=== PATIENT | female | born 1980 | race Hispanic/Latino ===

== ENCOUNTER 2019-05-29 16:03 | Inpatient (IN) | payer OTHER ==
[~2019-05-29] VITALS: Ht 160 cm; Wt 59.8 kg
[~2019-05-29 16:03] MED LIST: LEVO500T89 PO; OSEL75 PO; VERA120T13 PO
[2019-05-29] MEDS ORDERED: SODIUM CHLORIDE 0.9% 1000ML 1,000 ML IV ONE ×2 (16:25→20:01)
[2019-05-29 16:32] LABS: APPEARANCE,URINE Cloudy (CLEAR); BILIRUBIN,URINE Large (NEGATIVE); COLOR,URINE Dark Yellow (YELLOW); GLUCOSE, URINE (UA) Negative (NEGATIVE); KETONES,URINE 40 mg/dL (NEGATIVE); LEUKOCYTE ESTERASE ,URINE Moderate (NEGATIVE); NITRATE,URINE Negative (NEGATIVE); OCCULT BLOOD,URINE Trace (NEGATIVE); PROTEIN,URINE POS 1+ mg/dL (NEGATIVE)
[2019-05-29 16:35] LABS: BASOPHILS % (AUTO) 0.7 % (0.0-5.0); EOSINOPHILS % (AUTO) 1.8 % (0.0-8.0); HEMATOCRIT 41.6 % (36-48); LYMPHOCYTES % (AUTO) 34.1 % (21.0-51.0); MEAN CORPUSCULAR HEMOGLOBIN 30.5 pg (27.0-33.0); MEAN CORPUSCULAR HGB CONC 34.8 g/dL (32.0-36.0); MEAN CORPUSCULAR VOLUME 87.4 fL (79-99); MONOCYTES % (AUTO) 23.6 % (3.0-13.0); NEUTROPHILS % (AUTO) 39.8 % (40.0-77.0); NUCLEATED RED BLOOD CELLS 0.1 % (0.0-0.19); PLATELET COUNT (AUTO) 256 K/uL (130-400); RED BLOOD CELL COUNT(AUTO) 4.76 MIL/uL (4.00-5.50); RED CELL DISTRIBUTION WIDTH 13.2 % (11.0-15.5); WHITE BLOOD COUNT (AUTO) 14.9 K/uL (4.8-10.8)
[2019-05-29 16:46] LABS: AMORPHOUS SEDIMENT,UR Few /LPF (None Seen); BACTERIA,URINE Moderate /HPF (None Seen); MUCUS,URINE Moderate LPF (None Seen)
[2019-05-29 16:47] LABS: INR 1.14 (0.85-1.15); PARTIAL THROMBOPLASTIN TIME 34.9 SEC (26.3-35.5); PROTHROMBIN TIME 11.9 SEC (9.6-11.6)
[2019-05-29 16:59] LABS: ALBUMIN 3.1 g/dL (3.5-5.0); CREATININE 3.9 mg/dL (0.5-1.5); POTASSIUM 3.3 mmol/L (3.5-5.1); TOTAL PROTEIN, SERUM 7.3 g/dL (6.0-8.3)
[2019-05-29] MEDS ORDERED: CEFTRIAXONE SODIUM 1 GM ONE (17:08)
[2019-05-29] MEDS ORDERED: SODIUM CHLORIDE 0.9% 1000ML 2,000 ML IV ONE (17:11)
[2019-05-29 17:15] LABS: ACETAMINOPHEN < 1 mcg/mL (10-30); SALICYLATE < 2.8 mg/dL (2.8-20.0)
[2019-05-29 17:16] LABS: AMPHET/METH SCREEN,URINE NEGATIVE (NEGATIVE); BARBITURATE SCREEN, URINE NEGATIVE (NEGATIVE); BENZODIAZEPINES SCREEN,URINE NEGATIVE (NEGATIVE); CANNABINOID SCREEN,URINE NEGATIVE (NEGATIVE); COCAINE SCREEN,URINE NEGATIVE (NEGATIVE); OPIATE SCREEN,URINE NEGATIVE (NEGATIVE); PHENCYCLIDINE SCREEN,URINE NEGATIVE (NEGATIVE)
[2019-05-29 17:24] LABS: ALCOHOL, BLOOD < 3 mg/dL (0-10)
[2019-05-29 18:25] LABS: ABG BASE EXCESS -9.2 mmol/L (-2.0-3.0); ABG HCO3 12.1 mmol/L (21.0-28.0); ABG OXYGEN SATURATION 98.3 % (95.0-99.0); ABG PCO2 18 mmHg (32-45)
[2019-05-29] MEDS ORDERED: NS-20 MEQ KCL 1000ML 1,000 ML IV ONE (19:45)
[2019-05-29] MEDS ORDERED: MAGNESIUM 2GM PREMIX 50ML 50 ML IV ONE (19:46)
[2019-05-29] MEDS ORDERED: PHARMACY COMMUNICATION MISC SCH (20:45)
[2019-05-29 22:01] LABS: BASOPHILS % (AUTO) 0.2 % (0.0-5.0); EOSINOPHILS % (AUTO) 2.2 % (0.0-8.0); HEMATOCRIT 35.7 % (36-48); LYMPHOCYTES % (AUTO) 31.1 % (21.0-51.0); MEAN CORPUSCULAR HEMOGLOBIN 30.3 pg (27.0-33.0); MEAN CORPUSCULAR HGB CONC 34.2 g/dL (32.0-36.0); MEAN CORPUSCULAR VOLUME 88.4 fL (79-99); MONOCYTES % (AUTO) 21.1 % (3.0-13.0); NEUTROPHILS % (AUTO) 45.4 % (40.0-77.0); NUCLEATED RED BLOOD CELLS 0.1 % (0.0-0.19); PLATELET COUNT (AUTO) 231 K/uL (130-400); RED BLOOD CELL COUNT(AUTO) 4.04 MIL/uL (4.00-5.50); RED CELL DISTRIBUTION WIDTH 13.3 % (11.0-15.5); WHITE BLOOD COUNT (AUTO) 11.6 K/uL (4.8-10.8)
[2019-05-29 22:10] LABS: CREATININE 2.4 mg/dL (0.5-1.5); POTASSIUM 3.3 mmol/L (3.5-5.1)
[2019-05-29 22:16] LABS: ALBUMIN 2.6 g/dL (3.5-5.0); BILIRUBIN,TOTAL 2.6 mg/dL (0.2-1.0); TOTAL PROTEIN, SERUM 6.2 g/dL (6.0-8.3)
[2019-05-29 22:30] LABS: MAGNESIUM 2.5 mg/dL (1.80-2.40)
[2019-05-29 22:31] LABS: TROPONIN I 1.15 ng/mL (0.00-0.06)
[2019-05-30] MEDS ORDERED: ACETAMINOPHEN EXTRA STRENGTH 500 MG TABLET ONE (04:31)
[2019-05-30 05:18] LABS: BASOPHILS % (AUTO) 0.2 % (0.0-5.0); EOSINOPHILS % (AUTO) 1.5 % (0.0-8.0); HEMATOCRIT 33.9 % (36-48); LYMPHOCYTES % (AUTO) 24.8 % (21.0-51.0); MEAN CORPUSCULAR HEMOGLOBIN 30.8 pg (27.0-33.0); MEAN CORPUSCULAR HGB CONC 34.5 g/dL (32.0-36.0); MEAN CORPUSCULAR VOLUME 89.1 fL (79-99); MONOCYTES % (AUTO) 20.6 % (3.0-13.0); NEUTROPHILS % (AUTO) 52.9 % (40.0-77.0); PLATELET COUNT (AUTO) 219 K/uL (130-400); RED BLOOD CELL COUNT(AUTO) 3.81 MIL/uL (4.00-5.50); RED CELL DISTRIBUTION WIDTH 13.4 % (11.0-15.5); WHITE BLOOD COUNT (AUTO) 13.5 K/uL (4.8-10.8)
[2019-05-30 05:23] LABS: CREATININE 1.5 mg/dL (0.5-1.5); POTASSIUM 3.6 mmol/L (3.5-5.1)
[2019-05-30 05:26] LABS: ALBUMIN 2.3 g/dL (3.5-5.0); BILIRUBIN,TOTAL 2.2 mg/dL (0.2-1.0); MAGNESIUM 2.6 mg/dL (1.80-2.40); TOTAL PROTEIN, SERUM 5.7 g/dL (6.0-8.3)
[2019-05-30 05:51] LABS: TROPONIN I 0.91 ng/mL (0.00-0.06)
[2019-05-30 12:26] LABS: TROPONIN I 0.73 ng/mL (0.00-0.06)
[2019-05-30] MEDS ORDERED: ZOSYN 3.375GM+NS 50ML 50 ML IV ONE (14:52)
[2019-05-30] MEDS ORDERED: SODIUM CHLORIDE 0.9% 1000ML 1,000 ML IV ONE (15:06)
[2019-05-30] MEDS ORDERED: CEFTRIAXONE SODIUM 1 GM IVP SCH (17:00)
[2019-05-30 18:38] LABS: TROPONIN I 0.62 ng/mL (0.00-0.06)
[2019-05-31] MEDS ORDERED: ZOSYN 3.375GM+NS 50ML 50 ML IV ONE ×2 (00:39→07:23)
[2019-05-31] MEDS ORDERED: ACETAMINOPHEN 325 MG TAB ONE (04:21)
[2019-05-31 04:57] LABS: BASOPHILS % (AUTO) 0.3 % (0.0-5.0); HEMATOCRIT 36.7 % (36-48); LYMPHOCYTES % (AUTO) 28.2 % (21.0-51.0); MEAN CORPUSCULAR HEMOGLOBIN 30.7 pg (27.0-33.0); MEAN CORPUSCULAR HGB CONC 34.1 g/dL (32.0-36.0); MONOCYTES % (AUTO) 17.9 % (3.0-13.0); NEUTROPHILS % (AUTO) 49.6 % (40.0-77.0); PLATELET COUNT (AUTO) 232 K/uL (130-400); RED BLOOD CELL COUNT(AUTO) 4.08 MIL/uL (4.00-5.50); WHITE BLOOD COUNT (AUTO) 11.8 K/uL (4.8-10.8)
[2019-05-31 05:16] LABS: MAGNESIUM 1.2 mg/dL (1.80-2.40); PHOSPHORUS 3.3 mg/dL (2.5-4.9); TROPONIN I 0.35 ng/mL (0.00-0.06)
[2019-05-31 05:19] LABS: ALBUMIN 2.6 g/dL (3.5-5.0); BILIRUBIN,TOTAL 2.3 mg/dL (0.2-1.0); CREATININE 1.2 mg/dL (0.5-1.5); POTASSIUM 3.2 mmol/L (3.5-5.1); THYROID STIMULATING HORMONE 11.56 uIU/mL (0.36-3.74); TOTAL PROTEIN, SERUM 6.9 g/dL (6.0-8.3)
[2019-05-31] MEDS ORDERED: DEXTROSE 50%-WATER 50 ML DISP.SYRIN IV ONE (05:24)
[2019-05-31] MEDS ORDERED: MAGNESIUM 2GM PREMIX 50ML 50 ML IV ONE (05:45)
[2019-05-31] MEDS ORDERED: POTASSIUM CHLORIDE 20 MEQ ERTAB PO ONE (05:47)
[2019-05-31] MEDS: ZOSYN 3.375GM+NS 50ML 50 ML IV SCH ×3 (06:15→22:31)
[2019-05-31] MEDS ORDERED: DEXTROSE 50%-WATER 25 GM/50 ML VIAL IV SCH (07:15)
[2019-05-31 10:30] VITALS: BP 93/60
[2019-05-31] MEDS: SODIUM CHLORIDE 0.9% 1000ML 1,000 ML IV SCH (11:24)
[2019-05-31 16:00] VITALS: BP 95/61
[2019-05-31] MEDS ORDERED: LEVO75TA10 PO (16:24)
[2019-05-31] MEDS ORDERED: HYDR-3894 PO (16:24)
[2019-05-31] MEDS: ASPIRIN 325MG EC TAB 325 MG TABLET.DR PO SCH (16:31)
--- NOTE | 2019-05-31 19:07 | NUR ---
cm note met with patient and states resides athome with adult children, independent with ambulation and adls, no dme. provided with list of low income clinics in the area. and rx paula, pt states will follow up. dc plan is home at pa. Addendum: 05/31/19 at 1909 by ANDREWS ALTMAN CM Amended: Links added.
[2019-05-31 19:20] VITALS: BP 91/54
[2019-05-31] MEDS: HYDROCORTISONE 20 MG TABLET PO SCH (22:30)
[2019-05-31 23:26] VITALS: BP 94/42
[2019-06-01] VITALS (8 sets, daily range): BP systolic 83–103; BP diastolic 47–68
[2019-06-01] MEDS: SODIUM CHLORIDE 0.9% 1000ML 1,000 ML IV SCH ×2 (03:47→08:45)
[2019-06-01] MEDS: ZOSYN 3.375GM+NS 50ML 50 ML IV SCH ×3 (03:47→21:11)
[2019-06-01 05:31] LABS: ALBUMIN 2.5 g/dL (3.5-5.0); PHOSPHORUS 3.2 mg/dL (2.5-4.9); POTASSIUM 3.5 mmol/L (3.5-5.1)
[2019-06-01] MEDS: LEVOTHYROXINE 75 MCG TABLET PO SCH (07:30)
[2019-06-01] MEDS ORDERED: REGADENOSON 0.4 MG/5 ML PF SYG IVP SCH (08:00)
[2019-06-01] MEDS: HYDROCORTISONE 20 MG TABLET PO SCH ×3 (09:00→21:11)
--- NOTE | 2019-06-01 11:50 | NUR ---
ANTON FROM RADIOLOGY CALLED AND REPORTED PATIENT HR AT 170S. PATIENT ARRIVED TO THE ROOM RELAXED AND NO DISTRESS NOTED. TELE MONITOR REPORTED A-FIB IN THE 130'S AND SHORTLY AFTERWARDS CONVERTED ON SVT 175. [facility] PAGED, DR CHACON ENTERTAINMENT & MEDIA CORRESPONDENT. AREN FROM [facility] STATED I SHOULD PAGED JULIA CHURCHILL SINCE HE WAS THE ONE WHO SAW THE PATIENT DURING THE WEEKEND.
--- NOTE | 2019-06-01 12:17 | NUR ---
PAGED JULIA HALEY. WAITING FOR CALL BACK.
--- NOTE | 2019-06-01 12:20 | NUR ---
JULIA CHURCHILL CALLED BACK. STATED HE CANNOT GIVEN ANY ORDERS OVER THE PHONE BECAUSE AN MD NEEDS TO ASSESS THE PATIENT IN PERSON AND MAKE SOME DECISIONS. RAPID RESPONSE CALLED. PATIENT STILL APPEARS ASYMPTOMATIC. NO SOB, CHEST PAIN OR DISCOMFORT NOTED.
--- NOTE | 2019-06-01 12:22 | NUR ---
DR STARK AWARE OF PATIENT STATUS. ORDERS TO TRANSFER PATIENT TO PCCU. 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 REPORT CALLED TO JESSY ELY. ALL QUESTIONS ANSWERED ACCORDINGLY.
--- NOTE | 2019-06-01 12:25 | NUR ---
NURSING OBSERVATION B/P 86/68, P=171, BRENDA B/P 84/50, P=170, DENIES C.P. OR DIZZINESS, PLACED ON 02,NO NO DISTRESS NOTED, CONTINUE TO MONITOR.
[2019-06-01] MEDS ORDERED: ADENOSINE 3 MG/ML 2ML VIAL IV SCH (12:47)
--- NOTE | 2019-06-01 13:00 | NUR ---
RECEIVED PATIENT VIA BED FRO ROOM 412, ACCOMPANIED BY PRIMARY NURSE, KENDAL RN AND BILL RN 3RD FRUIT HARVESTER. PATIENT APPEARS COMFORTABLE. APPLIED EAR SPECIALIST AND BP CUFF. SVT HR 171-190. BP 96/60. ASYMPTOMATIC. DENIES CHEST PAIN OR SHORTNESS OF BREATH. ALYSE SALOMON PA-C ARRIVED , STATES WILL ASSESS PATIENT PRIOR TO ANY TREATMENT/MEDICATION.
[2019-06-01 13:14] LABS: CREATININE 0.9 mg/dL (0.5-1.5); MAGNESIUM 0.9 mg/dL (1.80-2.40); POTASSIUM 3.3 mmol/L (3.5-5.1)
--- NOTE | 2019-06-01 13:25 | NUR ---
GIVEN NORMAL SALINE 500 CC IV BOLUS.
[2019-06-01] MEDS ORDERED: DILTIAZEM HCL 5 MG/ML 10 ML VIAL IV SCH (13:42)
[2019-06-01] MEDS ORDERED: DILTIAZEM 125MG+100 ML NS 125 ML IV SCH (13:42)
[2019-06-01] MEDS ORDERED: DILTIAZEM HCL 5 MG/ML 5 ML VIAL IVP SCH (13:44)
[2019-06-01] MEDS ORDERED: DILTIAZEM 125MG+100 ML NS 125 ML IV PRN (13:45)
[2019-06-01] MEDS ORDERED: MAGNESIUM 4GM PREMIX 100ML 100 ML IV STA (13:48)
[2019-06-01] MEDS ORDERED: POTASSIUM CHLORIDE 20 MEQ ERTAB PO PRN (14:00)
[2019-06-01] MEDS ORDERED: POTASSIUM CHLORIDE 20MEQ/100ML 100 ML IV PRN (14:00)
[2019-06-01] MEDS ORDERED: LIDOCAINE HCL-MPF 1% 2ML VIAL IV PRN (14:00)
--- NOTE | 2019-06-01 14:00 | NUR ---
NOTED AT INTERVALS HEART RATE SVT 170-180'S AND WITHIN SECONDS WILL CONVERT TO SR- ST 90-105. ASYMPTOMATIC. ALYSE SALOMON PA-C AT BEDSIDE. BP 117/70.
--- NOTE | 2019-06-01 14:02 | NUR ---
ADENOSINE 12 MG IV PUSH GIVEN BY Delfina SALOMON PA-C, FOLLOWED BY CARDIZEM 10 MG IV AND INITIATED IV CARDIZEM DRIP AT 10MG/HR. PATIENT STATES SHE FEELS "WEIRD", BP 96/60, HR 94 SR, O2 SAT 97% ON ROOM AIR. WILL CONTINUE TO MONITOR.
--- NOTE | 2019-06-01 14:05 | NUR ---
PATIENT STATES SHE FEELS FINE. ASYMPTOMATIC. BP 90/66, P 90. WILL CONTINUE TO MONITOR. FAMILY MEMBERS AT BEDSIDE.
[2019-06-01] MEDS: ASPIRIN 325MG EC TAB 325 MG TABLET.DR PO SCH (15:24)
[2019-06-01] MEDS: POTASSIUM CHLORIDE 10% ELIXIR 20 MEQ/15 ML UDCUP PO PRN ×2 (15:25→17:51)
--- NOTE | 2019-06-01 15:30 | NUR ---
AFTER HAVING LUNCH MEAL, INITIATED ORAL HYPOKALEMIA PROTOCOL (K+ 3.3) AND INITIATED 4GMS IV MAGNESIUM (MG 0.9).
[2019-06-01] MEDS ORDERED: LACTATED RINGERS 1000ML IV SCH (16:00)
--- NOTE | 2019-06-01 16:00 | NUR ---
WOOL SPOTTER SR HR 87-80. DECREASED IV CARDIZEM DRIP TO 5MG/HR. BP 90/60.
[2019-06-01] MEDS: DILTIAZEM HCL 60 MG TABLET PO SCH ×2 (17:50→23:36)
--- NOTE | 2019-06-01 18:00 | NUR ---
WEANED OFF IV CARDIZEM DRIP. SR HR 80'S. BP 90/56.
--- NOTE | 2019-06-01 18:30 | NUR ---
INITIATED PO CARDIZEM 30 MG PO. HR 87 SR.
--- NOTE | 2019-06-01 19:00 | NUR ---
Assumed care at 1900. Patient in bed with family at bedside. Patient in no apparent distress. No pain reported. Please review assessment for further detail. Will continue to monitor.
[2019-06-02] VITALS (8 sets, daily range): BP systolic 80–99; BP diastolic 37–58
[2019-06-02 03:45] LABS: BASOPHILS % (AUTO) 0.5 % (0.0-5.0); EOSINOPHILS % (AUTO) 0.1 % (0.0-8.0); HEMATOCRIT 31.5 % (36-48); LYMPHOCYTES % (AUTO) 21.2 % (21.0-51.0); MEAN CORPUSCULAR HEMOGLOBIN 30.9 pg (27.0-33.0); MEAN CORPUSCULAR HGB CONC 34.9 g/dL (32.0-36.0); MEAN CORPUSCULAR VOLUME 88.5 fL (79-99); MONOCYTES % (AUTO) 10.1 % (3.0-13.0); NEUTROPHILS % (AUTO) 68.1 % (40.0-77.0); PLATELET COUNT (AUTO) 305 K/uL (130-400); RED BLOOD CELL COUNT(AUTO) 3.57 MIL/uL (4.00-5.50); RED CELL DISTRIBUTION WIDTH 13.6 % (11.0-15.5); WHITE BLOOD COUNT (AUTO) 6.8 K/uL (4.8-10.8)
[2019-06-02 04:02] LABS: ALBUMIN 2.6 g/dL (3.5-5.0); BILIRUBIN,TOTAL 0.8 mg/dL (0.2-1.0); CREATININE 0.7 mg/dL (0.5-1.5); MAGNESIUM 1.6 mg/dL (1.80-2.40); PHOSPHORUS 1.7 mg/dL (2.5-4.9); TOTAL PROTEIN, SERUM 6.7 g/dL (6.0-8.3)
[2019-06-02] MEDS: DILTIAZEM HCL 60 MG TABLET PO SCH (06:00)
[2019-06-02] MEDS: LEVOTHYROXINE 75 MCG TABLET PO SCH (06:11)
[2019-06-02] MEDS: ZOSYN 3.375GM+NS 50ML 50 ML IV SCH ×3 (06:11→22:01)
[2019-06-02] MEDS: HYDROCORTISONE 20 MG TABLET PO SCH ×3 (08:42→22:00)
[2019-06-02] MEDS: ASPIRIN 325MG EC TAB 325 MG TABLET.DR PO SCH (08:42)
[2019-06-02] MEDS: MAGNESIUM 2GM PREMIX 50ML 50 ML IV PRN (08:46)
[2019-06-02] MEDS ORDERED: SODIUM CHLORIDE 0.9% 1000ML 1,000 ML IV ONE (15:57)
[2019-06-03 03:22] VITALS: BP 96/44
[2019-06-03] MEDS: ZOSYN 3.375GM+NS 50ML 50 ML IV SCH ×2 (05:58→14:58)
[2019-06-03] MEDS: LEVOTHYROXINE 75 MCG TABLET PO SCH (06:36)
[2019-06-03 07:22] VITALS: BP 81/51
[2019-06-03] MEDS: HYDROCORTISONE 20 MG TABLET PO SCH ×2 (08:59→14:58)
[2019-06-03] MEDS: ASPIRIN 325MG EC TAB 325 MG TABLET.DR PO SCH (09:00)
[2019-06-03] MEDS: MAGNESIUM 2GM PREMIX 50ML 50 ML IV PRN (09:09)
[2019-06-03 11:41] VITALS: BP 114/50
[2019-06-03 15:10] VITALS: BP 110/61
[2019-06-03 15:33] LABS: CREATININE 0.7 mg/dL (0.5-1.5); MAGNESIUM 2.2 mg/dL (1.80-2.40)
[2019-06-03] MEDS ORDERED: POTASSIUM CHLORIDE 20 MEQ ERTAB PO SCH (16:00)
== END 2019-06-03 18:25 | disposition home or self-care (01) | DRG 871 ==
LOC: EDH 16:03 → EDHIP 16:04 → 3CH 19:52 → EDHIP 20:18 → 4BH 05-31 10:12 → 2BH 06-01 13:00 → 2AH 06-02 18:11
PROVIDERS: ADMIT Internal Medicine Infectious Disease; ATTEND Internal Medicine Infectious Disease
DX: A41.9 Sepsis, unspecified organism (principal); R65.21 Severe sepsis with septic shock; I21.4 Non-ST elevation (NSTEMI) myocardial infarction; G93.41 Metabolic encephalopathy; N39.0 Urinary tract infection, site not specified; E87.1 Hypo-osmolality and hyponatremia; I47.1 Supraventricular tachycardia; N17.9 Acute kidney failure, unspecified; E16.2 Hypoglycemia, unspecified; E83.42 Hypomagnesemia; L80 Vitiligo; E87.5 Hyperkalemia; I48.91 Unspecified atrial fibrillation; E87.6 Hypokalemia; E03.9 Hypothyroidism, unspecified; Z87.01 Personal history of pneumonia (recurrent); Z90.49 Acquired absence of other specified parts of digestive tract; Z82.3 Family history of stroke; Z82.49 Family history of ischemic heart disease and other diseases of the circulatory system; Z91.19 Patient's noncompliance with other medical treatment and regimen
CPT/HCPCS: 36415; 36600; 70450; 71045; 78452; 80048; 80053; 80061; 80069; 80305; 81001; 82140; 82550; 82803; 82948; 83605; 83735; 83874; 84100; 84443; 84484; 84702; 85025; 85610; 85730; 87040; 87088; 93005; 93017; 93306; 96374; A9500; G0378; G0480; G0481; J0153; J0696; J2543; J2785; J3475; J3480; J3490; J7030; J7070; J7120

== ENCOUNTER 2019-08-09 14:51 | Inpatient (IN) | payer SELFPAY ==
[~2019-08-09] VITALS: Ht 160 cm; Wt 61.1 kg
[~2019-08-09 14:51] MED LIST changes: +HYDR-3894 PO; -LEVO500T89 PO; +LEVO75TA10 PO; -OSEL75 PO; -VERA120T13 PO
[2019-08-09] MEDS ORDERED: ONDANSETRON HCL 4 MG/2 ML VIAL ONE (15:05)
[2019-08-09] MEDS ORDERED: SODIUM CHLORIDE 0.9% 1000ML 1,000 ML IV ONE ×2 (15:06→16:09)
[2019-08-09 15:48] LABS: BASOPHILS % (AUTO) 0.7 % (0.0-5.0); EOSINOPHILS % (AUTO) 3.4 % (0.0-8.0); HEMATOCRIT 45.8 % (36-48); MEAN CORPUSCULAR HEMOGLOBIN 29.7 pg (27.0-33.0); MEAN CORPUSCULAR VOLUME 82.4 fL (79-99); MONOCYTES % (AUTO) 16.6 % (3.0-13.0); NEUTROPHILS % (AUTO) 46.9 % (40.0-77.0); PLATELET COUNT (AUTO) 447 K/uL (130-400); RED BLOOD CELL COUNT(AUTO) 5.56 MIL/uL (4.00-5.50); RED CELL DISTRIBUTION WIDTH 12.5 % (11.0-15.5); WHITE BLOOD COUNT (AUTO) 16.5 K/uL (4.8-10.8)
[2019-08-09 16:09] LABS: INR 1.09 (0.85-1.15); PARTIAL THROMBOPLASTIN TIME 30.6 SEC (26.3-35.5); PROTHROMBIN TIME 11.4 SEC (9.6-11.6)
[2019-08-09 16:17] LABS: APPEARANCE,URINE Cloudy (CLEAR); BILIRUBIN,URINE Negative (NEGATIVE); COLOR,URINE Yellow (YELLOW); GLUCOSE, URINE (UA) Negative (NEGATIVE); KETONES,URINE >=160 mg/dL (NEGATIVE); LEUKOCYTE ESTERASE ,URINE Moderate (NEGATIVE); NITRATE,URINE Negative (NEGATIVE); OCCULT BLOOD,URINE Small (NEGATIVE); PROTEIN,URINE POS 1+ mg/dL (NEGATIVE)
[2019-08-09 16:26] LABS: AMPHET/METH SCREEN,URINE NEGATIVE (NEGATIVE); BARBITURATE SCREEN, URINE NEGATIVE (NEGATIVE); BENZODIAZEPINES SCREEN,URINE NEGATIVE (NEGATIVE); CANNABINOID SCREEN,URINE NEGATIVE (NEGATIVE); COCAINE SCREEN,URINE NEGATIVE (NEGATIVE); OPIATE SCREEN,URINE NEGATIVE (NEGATIVE); PHENCYCLIDINE SCREEN,URINE NEGATIVE (NEGATIVE)
[2019-08-09 16:40] LABS: BACTERIA,URINE Few /HPF (None Seen); RBC,URINE None Seen /HPF (0-1)
[2019-08-09 16:59] LABS: CREATININE 1.3 mg/dL (0.5-1.5); POTASSIUM 3.9 mmol/L (3.5-5.1)
[2019-08-09] MEDS ORDERED: CEFTRIAXONE SODIUM 1 GM ONE (17:01)
[2019-08-09] MEDS ORDERED: SODIUM CHLORIDE 0.9% 50 ML IV ONE (17:01)
[2019-08-09 17:05] LABS: ALBUMIN 3.5 g/dL (3.5-5.0); BILIRUBIN,TOTAL 1.1 mg/dL (0.2-1.0); TOTAL PROTEIN, SERUM 7.7 g/dL (6.0-8.3)
[2019-08-09] MEDS ORDERED: ACETAMINOPHEN EXTRA STRENGTH 500 MG TABLET ONE (17:08)
[2019-08-09] MEDS ORDERED: ZOSYN 3.375GM+NS 50ML 50 ML IV ONE (17:44)
[2019-08-09] MEDS ORDERED: ACETAMINOPHEN 325 MG TAB PO PRN (17:45)
[2019-08-09] MEDS ORDERED: ONDANSETRON HCL 4 MG/2 ML VIAL IVP PRN (17:45)
[2019-08-09] MEDS ORDERED: MORPHINE SULFATE 2 MG/ML 1ML SYG IVP PRN (17:45)
[2019-08-09 19:00] VITALS: BP_SYST 88; BP_DIAS 50; BP_DIAS 56
[2019-08-09] MEDS: ZOSYN 3.375GM+NS 50ML 50 ML IV SCH (20:34)
[2019-08-09 20:35] VITALS: BP 101/59
--- NOTE | 2019-08-09 20:35 | NUR ---
MD Dr STARK notified via phone re low bp readings,started pt on IVF.
[2019-08-09] MEDS: SODIUM CHLORIDE 0.9% 1000ML 1,000 ML IV SCH (21:37)
[2019-08-09] MEDS: HYDROCORTISONE 20 MG TABLET PO SCH (21:37)
[2019-08-10] VITALS (7 sets, daily range): BP systolic 85–105; BP diastolic 53–64
--- NOTE | 2019-08-10 03:19 | NUR ---
ASLEEP Pt slept well.No distress noted.
[2019-08-10] MEDS: ZOSYN 3.375GM+NS 50ML 50 ML IV SCH ×3 (04:03→20:34)
[2019-08-10] MEDS ORDERED: LEVOTHYROXINE 75 MCG TABLET ONE (05:57)
[2019-08-10] MEDS: LEVOTHYROXINE 75 MCG TABLET PO SCH (05:58)
[2019-08-10 06:11] LABS: HEMATOCRIT 39.8 % (36-48); MEAN CORPUSCULAR HEMOGLOBIN 29.3 pg (27.0-33.0); MEAN CORPUSCULAR HGB CONC 34.2 g/dL (32.0-36.0); MEAN CORPUSCULAR VOLUME 85.8 fL (79-99); PLATELET COUNT (AUTO) 422 K/uL (130-400); RED BLOOD CELL COUNT(AUTO) 4.64 MIL/uL (4.00-5.50); RED CELL DISTRIBUTION WIDTH 13.1 % (11.0-15.5); WHITE BLOOD COUNT (AUTO) 12.8 K/uL (4.8-10.8)
[2019-08-10 06:29] LABS: ALBUMIN 3.1 g/dL (3.5-5.0); BILIRUBIN,TOTAL 0.8 mg/dL (0.2-1.0); CREATININE 0.9 mg/dL (0.5-1.5); MAGNESIUM 2.6 mg/dL (1.80-2.40); POTASSIUM 4.2 mmol/L (3.5-5.1); TOTAL PROTEIN, SERUM 7.2 g/dL (6.0-8.3)
[2019-08-10 07:23] LABS: EOSINOPHILS % (MANUAL) 2 % (1-6); LYMPHOCYTES % (MANUAL) 31 % (22-44); MONOCYTES % (MANUAL) 13 % (2-9); REACTIVE LYMPHOCYTES 1 % (0-0); SEGMENTED NEUTROPHILS % 53 % (40-70)
[2019-08-10 07:24] LABS: MAN.DIFF COMMENT-IMPRESSION MANUAL DIFFERENTIAL; PLATELET MORPHOLOGY COMMENT SLIGHT INCREASED
[2019-08-10] MEDS: HYDROCORTISONE 20 MG TABLET PO SCH ×3 (08:51→20:34)
[2019-08-10] MEDS ORDERED: FLU VACC QS2019-20 36MOS UP/PF 60 MCG/0.5 ML ML IM ONE (09:00)
[2019-08-10] MEDS ORDERED: FLU VACC QS2019-20 36MOS UP/PF 60 MCG/0.5 ML ML IM SCH (09:00)
--- NOTE | 2019-08-10 15:47 | NUR ---
RD Notification - Trigger Pt admitted for Urosepsis. Pt Hx of Cholecystectomy, Hypothyroid. Upon visit, Pt reports good appetite, no GI distress. Pt LBM 08/05/19; Recommend laxative/stool softener as medically feasible. No other nutrition concerns at this time. Pt monitored labs: CO2 17, Mg 2.60, Alb 3.1. RD to continue to monitor. Please notify RD as additional nutrition concerns arise. Thank you. Addendum: 08/10/19 at [address] Amended: Links added.
--- NOTE | 2019-08-10 16:50 | NUR ---
INITIAL MET W PT W FRIEND AT BEDSIDE- PT IS INDP, ACTIVE, NO DME/HH/PROV- NO INSURANCE, PREFERS TO GO TO [place], STATES CARE IS BETTER, DOES NOT WANT [facility]. DCP IS HOME, CM TO FOLLOW, WILL OFFER CLINIC INFO AGAIN. Addendum: 08/10/19 at 1651 by ROSALIA DE LA VEGA RN CM Amended: Links added.
[2019-08-10] MEDS: SODIUM CHLORIDE 0.9% 1000ML 1,000 ML IV SCH ×2 (17:03→20:34)
--- NOTE | 2019-08-10 21:00 | NUR ---
SHOWERED Pt states she feels much better today,she took a shower.
[2019-08-11 03:03] VITALS: BP 104/54
[2019-08-11] MEDS: ZOSYN 3.375GM+NS 50ML 50 ML IV SCH (05:09)
[2019-08-11 05:34] LABS: HEMATOCRIT 33.5 % (36-48); MEAN CORPUSCULAR HEMOGLOBIN 29.4 pg (27.0-33.0); MEAN CORPUSCULAR HGB CONC 34.3 g/dL (32.0-36.0); MEAN CORPUSCULAR VOLUME 85.7 fL (79-99); PLATELET COUNT (AUTO) 398 K/uL (130-400); RED BLOOD CELL COUNT(AUTO) 3.91 MIL/uL (4.00-5.50); RED CELL DISTRIBUTION WIDTH 12.9 % (11.0-15.5); WHITE BLOOD COUNT (AUTO) 16.5 K/uL (4.8-10.8)
[2019-08-11] MEDS: LEVOTHYROXINE 75 MCG TABLET PO SCH (06:12)
[2019-08-11 07:30] VITALS: BP 104/63
[2019-08-11] MEDS: HYDROCORTISONE 20 MG TABLET PO SCH (08:39)
[2019-08-11 11:00] VITALS: BP 88/54
[2019-08-11] MEDS: SODIUM CHLORIDE 0.9% 1000ML 1,000 ML IV SCH (12:53)
--- NOTE | 2019-08-11 13:57 | NUR ---
PATIENT GIVEN DISCHARGE INSTRUCTIONS A, REVIEWED MEDICATION AND FOLLOW-UP APPOINTMENT WITH HER PRIMARY, PATIENT WILL CALL HER PRIMARY PHYSICIAN FOR APPOINTMENT, IV REMOVED WITH CATHETER INTACT AND SITE DRESSED , PATIENT DENIES PAIN AT THIS TIME. BELONGINGS GATHER AND PATIENT TAKING BY WHEELCHAIR TO LOBBY TO LEAVE WITH FAMILY FOR HOME. NO QUESTIONS OR CONCERNS AT THIS TIME
== END 2019-08-11 14:07 | disposition home or self-care (01) | DRG 690 ==
LOC: EDH 14:51 → OBSVTOIN 14:52 → EDHIP 14:52 → 4CH 19:09
PROVIDERS: ADMIT Internal Medicine Infectious Disease; ATTEND Internal Medicine Infectious Disease
DX: N39.0 Urinary tract infection, site not specified (principal); E03.9 Hypothyroidism, unspecified; L80 Vitiligo; D72.829 Elevated white blood cell count, unspecified; Z90.49 Acquired absence of other specified parts of digestive tract; Z23 Encounter for immunization
CPT/HCPCS: 36415; 71045; 80053; 80305; 81001; 82010; 82140; 82150; 82550; 83605; 83690; 83735; 83880; 84145; 84484; 85025; 85027; 85610; 85730; 87040; 87088; 87804; 93005; 99291; G0378; G0480; J0696; J2405; J2543; J7030; Q2035

== ENCOUNTER 2021-03-04 06:15 | Inpatient (IN) | payer BC, OTHER ==
[2021-03-04] VITALS (66 sets, daily range): BP systolic 62–135; BP diastolic 27–113
[~2021-03-04] VITALS: Ht 154.9 cm; Wt 68.4 kg
[~2021-03-04 06:15] MED LIST changes: -HYDR-3894 PO; +HYDR-4419 PO
[2021-03-04] MEDS ORDERED: PIP/TAZ ZOSYN 3.375G 3.375 GM VIAL IVPB ONE (06:30)
[2021-03-04] MEDS ORDERED: PROPOFOL 1000 MG/100 ML 100 ML IV ONE (06:30)
[2021-03-04] MEDS ORDERED: 0.9%NACL 1000ML 957 ML IV SCH (06:30)
[2021-03-04] MEDS ORDERED: NALOXONE HCL 0.4 MG/1 ML ML ONE (06:35)
[2021-03-04] MEDS ORDERED: 0.9%NACL 1000ML 2,000 ML IV ONE (06:36)
[2021-03-04] MEDS ORDERED: FENTANYL 2500MCG+NS 250ML 250 ML IV ONE (06:38)
[2021-03-04] MEDS ORDERED: ZOSYN 3.375GM+NS 50ML 50 ML IV ONE (06:40)
[2021-03-04] MEDS ORDERED: MIDAZOLAM HCL 5 MG/ML 2ML VIAL IV STA (06:42)
[2021-03-04 06:46] LABS: BASOPHILS % (AUTO) 0.8 % (0.0-5.0); EOSINOPHILS % (AUTO) 1.3 % (0.0-8.0); HEMATOCRIT 44.9 % (36-48); LYMPHOCYTES % (AUTO) 27.5 % (21.0-51.0); MEAN CORPUSCULAR HEMOGLOBIN 30.2 pg (27.0-33.0); MEAN CORPUSCULAR HGB CONC 35.6 g/dL (32.0-36.0); MEAN CORPUSCULAR VOLUME 84.9 fL (79-99); MONOCYTES % (AUTO) 18.2 % (3.0-13.0); NEUTROPHILS % (AUTO) 51.7 % (40.0-77.0); NUCLEATED RED BLOOD CELLS 0.2 % (0.0-0.19); PLATELET COUNT (AUTO) 240 K/uL (130-400); RED BLOOD CELL COUNT(AUTO) 5.29 MIL/uL (4.00-5.50); RED CELL DISTRIBUTION WIDTH 12.9 % (11.0-15.5); WHITE BLOOD COUNT (AUTO) 21.6 K/uL (4.8-10.8)
[2021-03-04] MEDS ORDERED: NOREPINEPHRINE 4MG/NS 250ML 250 ML IV ONE ×3 (06:54→09:49)
[2021-03-04] MEDS ORDERED: FENTANYL CITRATE PF 0.05 MG/ML 1,000 MCG in 0.9%NACL 100ML 100 ML IVPB SCH (07:00)
[2021-03-04] MEDS ORDERED: ZOSYN 3.375GM+NS 50ML 50 ML IV SCH ×2 (07:01→21:00)
[2021-03-04 07:04] LABS: ALBUMIN 3.7 g/dL (3.5-5.0); CREATININE 6.9 mg/dL (0.5-1.5); POTASSIUM 3.9 mmol/L (3.5-5.1)
[2021-03-04 07:08] LABS: ABG BASE EXCESS -5.9 mmol/L (-2.0-3.0); ABG HCO3 16.5 mmol/L (21.0-28.0); ABG OXYGEN SATURATION 99.4 % (95.0-99.0); ABG PCO2 26 mmHg (32-45)
[2021-03-04 07:16] LABS: BILIRUBIN,TOTAL 2.6 mg/dL (0.2-1.0); MAGNESIUM 1.6 mg/dL (1.80-2.40); THYROID STIMULATING HORMONE 25.46 uIU/mL (0.36-3.74); TOTAL PROTEIN, SERUM 7.8 g/dL (6.0-8.3)
[2021-03-04 07:20] LABS: APPEARANCE,URINE CLOUDY (CLEAR); BILIRUBIN,URINE MODERATE (NEGATIVE); COLOR,URINE YELLOW (YELLOW); GLUCOSE, URINE (UA) NEGATIVE (NEGATIVE); KETONES,URINE 5 mg/dL (NEGATIVE); LEUKOCYTE ESTERASE ,URINE MODERATE (NEGATIVE); NITRATE,URINE NEGATIVE (NEGATIVE); OCCULT BLOOD,URINE LARGE (NEGATIVE); PROTEIN,URINE 100 mg/dL (NEGATIVE)
[2021-03-04 07:28] LABS: AMPHET/METH SCREEN,URINE NEGATIVE (NEGATIVE); BARBITURATE SCREEN, URINE NEGATIVE (NEGATIVE); BENZODIAZEPINES SCREEN,URINE NEGATIVE (NEGATIVE); CANNABINOID SCREEN,URINE NEGATIVE (NEGATIVE); COCAINE SCREEN,URINE NEGATIVE (NEGATIVE); OPIATE SCREEN,URINE NEGATIVE (NEGATIVE); PHENCYCLIDINE SCREEN,URINE NEGATIVE (NEGATIVE)
[2021-03-04 07:29] LABS: HCG,QUAL RESULT NEGATIVE (NEGATIVE)
[2021-03-04] MEDS ORDERED: FENTANYL 2500MCG+NS 250ML 250 ML IV SCH (07:30)
[2021-03-04 08:12] LABS: BACTERIA,URINE Moderate /HPF (None Seen)
[2021-03-04] MEDS ORDERED: MAGNESIUM 2GM PREMIX 50ML 50 ML IV ONE (08:15)
[2021-03-04] MEDS ORDERED: ACETAMINOPHEN 650 MG SUPPOSITORY RC ONE (08:16)
[2021-03-04] MEDS ORDERED: ACETAMINOPHEN 650 MG SUPPOSITORY RC SCH (08:30)
[2021-03-04] MEDS ORDERED: 0.9%NACL 1000ML 1,000 ML IV SCH ×2 (08:30→12:30)
[2021-03-04 08:49] LABS: ACETAMINOPHEN < 1 mcg/mL (10-30); SALICYLATE < 2.8 mg/dL (2.8-20.0)
[2021-03-04] MEDS ORDERED: HYDROCORTISONE SOD SUCCINATE 100 MG/2 ML VIAL ONE (09:26)
[2021-03-04] MEDS: MAGNESIUM 2GM PREMIX 50ML 50 ML IV NR ×2 (09:30→22:29)
[2021-03-04] MEDS: PANTOPRAZOLE 40 MG/VIAL IVP SCH (09:30)
[2021-03-04] MEDS ORDERED: VECURONIUM BROMIDE 10 MG ML IV ONE (09:30)
[2021-03-04] MEDS ORDERED: LEVOTHYROXINE 100MCG VIAL IV SCH (09:30)
[2021-03-04] MEDS ORDERED: SODIUM BICARB 50MEQ 50ML VIAL 100 ML ONE (09:35)
[2021-03-04] MEDS ORDERED: DIATR MEGLU/DIATRIZOATE SODIUM 30 ML BOTTLE ONE (09:46)
[2021-03-04] MEDS ORDERED: FAMOTIDINE 20MG VIAL IV SCH (09:59)
[2021-03-04] MEDS ORDERED: LEVOTHYROXINE 150 MCG TABLET PO SCH (10:00)
[2021-03-04] MEDS ORDERED: ONDANSETRON 4MG INJ IV PRN (10:00)
[2021-03-04] MEDS: PROPOFOL 1000 MG/100 ML 100 ML IV SCH (10:30)
[2021-03-04] MEDS ORDERED: SODIUM BICARB 50MEQ 50ML VIAL IV STA (10:31)
[2021-03-04] MEDS ORDERED: 0.9%NACL 100ML 100 ML ONE (10:44)
[2021-03-04] MEDS ORDERED: LACTATED RINGERS 1000ML 1,000 ML IV SCH (11:00)
[2021-03-04] MEDS ORDERED: HYDROCORTISONE SOD SUCCINATE 100 MG/2 ML VIAL IV SCH (11:00)
[2021-03-04] MEDS ORDERED: SODIUM BICARB 50MEQ 50ML VIAL IV SCH (11:00)
[2021-03-04] MEDS ORDERED: VECURONIUM BROMIDE IV SCH (11:00)
[2021-03-04] MEDS ORDERED: [UNRECOGNIZED DRUG - OTHER] IV SCH (11:00)
[2021-03-04] MEDS: LINEZOLID 600 MG/ISO-OSM 300 ML IV SCH ×2 (11:14→21:13)
[2021-03-04] MEDS ORDERED: ETOMIDATE 20MG VIAL IVP ONE (13:00)
[2021-03-04] MEDS ORDERED: ROCURONIUM BROMIDE 10MG/1ML 5ML VL IV ONE (13:00)
[2021-03-04] MEDS ORDERED: HYDROCORTISONE SOD SUCCINATE 100 MG/2 ML VIAL IM SCH (13:00)
[2021-03-04] MEDS ORDERED: SUCCINYLCHOLINE CHLORIDE 20 MG/ML 10 ML VIAL IVP ONE (13:00)
[2021-03-04] MEDS: LACTATED RINGERS 1000ML 1,000 ML IV SCH ×3 (13:30→23:28)
[2021-03-04] MEDS ORDERED: NOREPINEPHRINE BITARTRATE 32 MG in 0.9% NACL 250ML 250 ML IV PRN (14:00)
[2021-03-04] MEDS: HEPARIN 5,000 UNIT VIAL SQ SCH ×2 (14:00→21:12)
[2021-03-04] MEDS: DOXYCYCLINE 100MG+NS 250ML IV SCH (16:20)
[2021-03-04] MEDS: 0.9% NACL 250ML IVPB SCH (16:20)
[2021-03-04] MEDS: VASOPRESSIN 20 UNITS in 0.9%NACL 100ML 99 ML IV PRN ×2 (16:53→23:56)
[2021-03-04] MEDS ORDERED: ADENOSINE 6MG VIAL IV STA ×2 (20:03)
[2021-03-04] MEDS ORDERED: ADENOSINE 6MG VIAL IV ONE ×6 (20:06→22:36)
[2021-03-04] MEDS: HYDROCORTISONE SOD SUCCINATE 100 MG/2 ML VIAL IV SCH (21:13)
[2021-03-04 22:07] LABS: CREATININE 2.4 mg/dL (0.5-1.5)
[2021-03-04 22:09] LABS: POTASSIUM 2.9 mmol/L (3.5-5.1)
[2021-03-04] MEDS ORDERED: POTASSIUM CHLORIDE 20MEQ/100ML 100 ML IV ONE ×2 (22:14→22:48)
[2021-03-04] MEDS ORDERED: POTASSIUM CHLORIDE 20 MEQ/100 ML BAG IV SCH (22:30)
[2021-03-04] MEDS ORDERED: LIDOCAINE HCL-MPF 1% 2ML VIAL IV PRN (22:30)
[2021-03-05] VITALS (24 sets, daily range): BP systolic 90–138; BP diastolic 57–87
[2021-03-05] MEDS: PROPOFOL 1000 MG/100 ML 100 ML IV SCH ×2 (01:06→22:47)
[2021-03-05] MEDS: 0.9% NACL 250ML IVPB SCH ×2 (02:04→14:21)
[2021-03-05] MEDS: DOXYCYCLINE 100MG+NS 250ML IV SCH ×2 (02:04→14:21)
[2021-03-05 03:48] LABS: BASOPHILS % (AUTO) 0.3 % (0.0-5.0); EOSINOPHILS % (AUTO) 0.4 % (0.0-8.0); HEMATOCRIT 37.4 % (36-48); LYMPHOCYTES % (AUTO) 4.9 % (21.0-51.0); MEAN CORPUSCULAR HEMOGLOBIN 30.3 pg (27.0-33.0); MEAN CORPUSCULAR HGB CONC 35.3 g/dL (32.0-36.0); MONOCYTES % (AUTO) 6.9 % (3.0-13.0); NEUTROPHILS % (AUTO) 86.2 % (40.0-77.0); PLATELET COUNT (AUTO) 191 K/uL (130-400); RED BLOOD CELL COUNT(AUTO) 4.35 MIL/uL (4.00-5.50); RED CELL DISTRIBUTION WIDTH 13.3 % (11.0-15.5)
[2021-03-05] MEDS: HYDROCORTISONE SOD SUCCINATE 100 MG/2 ML VIAL IV SCH ×3 (04:03→20:09)
[2021-03-05 04:08] LABS: ALBUMIN 2.5 g/dL (3.5-5.0); BILIRUBIN,TOTAL 0.9 mg/dL (0.2-1.0); CREATININE 1.8 mg/dL (0.5-1.5); MAGNESIUM 2.7 mg/dL (1.80-2.40); PHOSPHORUS 3.6 mg/dL (2.5-4.9); POTASSIUM 3.4 mmol/L (3.5-5.1); TOTAL PROTEIN, SERUM 6.6 g/dL (6.0-8.3)
[2021-03-05] MEDS: POTASSIUM CHLORIDE 20MEQ/100ML 100 ML IV PRN ×2 (04:17→19:03)
[2021-03-05] MEDS: LEVOTHYROXINE 100MCG VIAL IV SCH (05:33)
[2021-03-05] MEDS ORDERED: LEVOTHYROXINE 150 MCG TABLET PO SCH (06:30)
[2021-03-05 07:32] LABS: ABG BASE EXCESS -8.5 mmol/L (-2.0-3.0); ABG HCO3 15.9 mmol/L (21.0-28.0); ABG OXYGEN SATURATION 98.9 % (95.0-99.0); ABG PCO2 30 mmHg (32-45)
[2021-03-05 07:33] LABS: ABG BASE EXCESS -4.3 mmol/L (-2.0-3.0); ABG OXYGEN SATURATION 95.7 % (95.0-99.0); ABG PCO2 34 mmHg (32-45)
[2021-03-05 07:33] LABS: ABG BASE EXCESS -8.8 mmol/L (-2.0-3.0); ABG HCO3 15.4 mmol/L (21.0-28.0); ABG OXYGEN SATURATION 98.9 % (95.0-99.0); ABG PCO2 29 mmHg (32-45)
[2021-03-05] MEDS: PANTOPRAZOLE 40 MG/VIAL IVP SCH (08:37)
[2021-03-05] MEDS: LACTATED RINGERS 1000ML 1,000 ML IV SCH ×3 (08:37→22:40)
[2021-03-05] MEDS: LINEZOLID 600 MG/ISO-OSM 300 ML IV SCH ×2 (08:37→20:22)
[2021-03-05] MEDS: HEPARIN 5,000 UNIT VIAL SQ SCH ×3 (08:52→20:11)
[2021-03-05] MEDS ORDERED: RENAL DOSE IV SCH (11:00)
[2021-03-05] MEDS: VASOPRESSIN 20 UNITS in 0.9%NACL 100ML 99 ML IV PRN ×2 (12:00→20:01)
[2021-03-05] MEDS: INSULIN HUMULIN R 100 UNIT/ML 3ML SQ SCH ×3 (12:06→22:46)
[2021-03-05 14:07] LABS: MAGNESIUM 2.6 mg/dL (1.80-2.40); POTASSIUM 3.5 mmol/L (3.5-5.1)
[2021-03-05] MEDS: ZOSYN 3.375GM+NS 50ML 50 ML IV SCH ×2 (14:21→20:10)
[2021-03-05] MEDS ORDERED: PHARMACY COMMUNICATION MISC SCH (19:30)
[2021-03-05] MEDS: INSULIN GLARGINE 100 UNITS/ML 10 ML VIAL SQ SCH (20:12)
[2021-03-06] VITALS (24 sets, daily range): BP systolic 90–165; BP diastolic 60–94
[2021-03-06] MEDS: VASOPRESSIN 20 UNITS in 0.9%NACL 100ML 99 ML IV PRN ×2 (00:11→15:07)
[2021-03-06] MEDS: 0.9% NACL 250ML IVPB SCH ×2 (01:55→15:10)
[2021-03-06] MEDS: DOXYCYCLINE 100MG+NS 250ML IV SCH ×2 (01:55→15:10)
[2021-03-06 03:41] LABS: ABG BASE EXCESS -4.5 mmol/L (-2.0-3.0); ABG HCO3 18.3 mmol/L (21.0-28.0); ABG OXYGEN SATURATION 96.7 % (95.0-99.0); ABG PCO2 28 mmHg (32-45)
[2021-03-06] MEDS: HYDROCORTISONE SOD SUCCINATE 100 MG/2 ML VIAL IV SCH ×3 (04:17→20:19)
[2021-03-06] MEDS: ZOSYN 3.375GM+NS 50ML 50 ML IV SCH ×3 (04:17→20:19)
[2021-03-06 04:58] LABS: BASOPHILS % (AUTO) 0.5 % (0.0-5.0); EOSINOPHILS % (AUTO) 0.2 % (0.0-8.0); HEMATOCRIT 33.4 % (36-48); LYMPHOCYTES % (AUTO) 6.8 % (21.0-51.0); MEAN CORPUSCULAR HGB CONC 34.7 g/dL (32.0-36.0); MEAN CORPUSCULAR VOLUME 86.3 fL (79-99); MONOCYTES % (AUTO) 6.4 % (3.0-13.0); NEUTROPHILS % (AUTO) 82.7 % (40.0-77.0); PLATELET COUNT (AUTO) 156 K/uL (130-400); RED BLOOD CELL COUNT(AUTO) 3.87 MIL/uL (4.00-5.50); RED CELL DISTRIBUTION WIDTH 13.6 % (11.0-15.5); WHITE BLOOD COUNT (AUTO) 21.8 K/uL (4.8-10.8)
[2021-03-06] MEDS: INSULIN HUMULIN R 100 UNIT/ML 3ML SQ SCH ×3 (05:05→17:39)
[2021-03-06] MEDS: LEVOTHYROXINE 100MCG VIAL IV SCH (05:05)
[2021-03-06] MEDS: LACTATED RINGERS 1000ML 1,000 ML IV SCH ×3 (05:05→23:00)
[2021-03-06 05:16] LABS: ALBUMIN 2.3 g/dL (3.5-5.0); BILIRUBIN,TOTAL 0.7 mg/dL (0.2-1.0); CREATININE 1.1 mg/dL (0.5-1.5); POTASSIUM 3.9 mmol/L (3.5-5.1); TOTAL PROTEIN, SERUM 5.9 g/dL (6.0-8.3)
[2021-03-06] MEDS: PANTOPRAZOLE 40 MG/VIAL IVP SCH (08:20)
[2021-03-06] MEDS: LINEZOLID 600 MG/ISO-OSM 300 ML IV SCH ×2 (08:20→20:19)
[2021-03-06] MEDS: HEPARIN 5,000 UNIT VIAL SQ SCH ×3 (08:21→20:21)
[2021-03-06] MEDS: MIDODRINE HCL 5 MG TABLET NG SCH ×2 (13:08→20:19)
[2021-03-06] MEDS ORDERED: MIDODRINE HCL 5 MG TABLET PO SCH (14:00)
[2021-03-06] MEDS: INSULIN GLARGINE 100 UNITS/ML 10 ML VIAL SQ SCH (20:31)
[2021-03-07] VITALS (24 sets, daily range): BP systolic 114–144; BP diastolic 60–96
[2021-03-07] MEDS ORDERED: RACEPINEPHRINE HCL 2.25% 0.5 ML NEB SOLN NEB PRN
[2021-03-07] MEDS: LACTATED RINGERS 1000ML 1,000 ML IV SCH ×4 (02:04→22:31)
[2021-03-07] MEDS: 0.9% NACL 250ML IVPB SCH ×2 (02:49→14:13)
[2021-03-07] MEDS: DOXYCYCLINE 100MG+NS 250ML IV SCH ×2 (02:49→14:01)
[2021-03-07 03:49] LABS: BASOPHILS % (AUTO) 0.6 % (0.0-5.0); EOSINOPHILS % (AUTO) 0.5 % (0.0-8.0); HEMATOCRIT 32.5 % (36-48); LYMPHOCYTES % (AUTO) 7.4 % (21.0-51.0); MEAN CORPUSCULAR HEMOGLOBIN 30.3 pg (27.0-33.0); MEAN CORPUSCULAR HGB CONC 34.8 g/dL (32.0-36.0); MEAN CORPUSCULAR VOLUME 87.1 fL (79-99); MONOCYTES % (AUTO) 4.8 % (3.0-13.0); NEUTROPHILS % (AUTO) 82.4 % (40.0-77.0); PLATELET COUNT (AUTO) 147 K/uL (130-400); RED BLOOD CELL COUNT(AUTO) 3.73 MIL/uL (4.00-5.50); WHITE BLOOD COUNT (AUTO) 21.4 K/uL (4.8-10.8)
[2021-03-07 03:52] LABS: HEMOGLOBIN A1C 5.3 % (4.0-6.0)
[2021-03-07 04:00] LABS: ALBUMIN 2.5 g/dL (3.5-5.0); BILIRUBIN,TOTAL 0.8 mg/dL (0.2-1.0); CREATININE 0.8 mg/dL (0.5-1.5); POTASSIUM 4.1 mmol/L (3.5-5.1); TOTAL PROTEIN, SERUM 6.1 g/dL (6.0-8.3)
[2021-03-07] MEDS: HYDROCORTISONE SOD SUCCINATE 100 MG/2 ML VIAL IV SCH ×3 (04:40→20:17)
[2021-03-07] MEDS: ZOSYN 3.375GM+NS 50ML 50 ML IV SCH ×3 (04:40→20:18)
[2021-03-07] MEDS: LEVOTHYROXINE 100MCG VIAL IV SCH (05:54)
[2021-03-07] MEDS: INSULIN HUMULIN R 100 UNIT/ML 3ML SQ SCH ×4 (05:58→18:00)
[2021-03-07] MEDS: MIDODRINE HCL 5 MG TABLET NG SCH ×3 (08:39→20:49)
[2021-03-07] MEDS: LINEZOLID 600 MG/ISO-OSM 300 ML IV SCH ×2 (08:40→20:18)
[2021-03-07] MEDS: PANTOPRAZOLE 40 MG/VIAL IVP SCH (08:40)
[2021-03-07] MEDS: HEPARIN 5,000 UNIT VIAL SQ SCH ×3 (08:41→20:19)
[2021-03-07 12:47] LABS: ABG BASE EXCESS 1.2 mmol/L (-2.0-3.0); ABG HCO3 24.3 mmol/L (21.0-28.0); ABG OXYGEN SATURATION 91.3 % (95.0-99.0); ABG PCO2 34 mmHg (32-45)
[2021-03-07] MEDS ORDERED: SOLU-MEDROL 125MG VIAL IVP SCH (13:00)
[2021-03-07] MEDS: IPRATROPIUM/ALBUTEROL SULFATE 3 ML SOLUTION IH SCH ×2 (14:00→19:22)
[2021-03-07] MEDS: INSULIN GLARGINE 100 UNITS/ML 10 ML VIAL SQ SCH (21:00)
[2021-03-08] VITALS (13 sets, daily range): BP systolic 120–151; BP diastolic 57–90
[2021-03-08] MEDS: IPRATROPIUM/ALBUTEROL SULFATE 3 ML SOLUTION IH SCH ×4 (00:15→18:50)
[2021-03-08] MEDS: DOXYCYCLINE 100MG+NS 250ML IV SCH ×2 (02:26→15:43)
[2021-03-08] MEDS: 0.9% NACL 250ML IVPB SCH ×2 (02:31→15:44)
[2021-03-08] MEDS: HYDROCORTISONE SOD SUCCINATE 100 MG/2 ML VIAL IV SCH ×3 (04:36→14:45)
[2021-03-08] MEDS: LACTATED RINGERS 1000ML 1,000 ML IV SCH ×3 (04:36→15:46)
[2021-03-08] MEDS: ZOSYN 3.375GM+NS 50ML 50 ML IV SCH ×3 (04:36→19:50)
[2021-03-08 05:29] LABS: MEAN CORPUSCULAR HEMOGLOBIN 30.6 pg (27.0-33.0); MEAN CORPUSCULAR HGB CONC 34.5 g/dL (32.0-36.0); MEAN CORPUSCULAR VOLUME 88.6 fL (79-99); NUCLEATED RED BLOOD CELLS 0.3 % (0.0-0.19); RED BLOOD CELL COUNT(AUTO) 3.5 MIL/uL (4.00-5.50); RED CELL DISTRIBUTION WIDTH 14.1 % (11.0-15.5); WHITE BLOOD COUNT (AUTO) 15.3 K/uL (4.8-10.8)
[2021-03-08] MEDS: LEVOTHYROXINE 100MCG VIAL IV SCH (05:41)
[2021-03-08 05:58] LABS: CREATININE 0.9 mg/dL (0.5-1.5); POTASSIUM 3.2 mmol/L (3.5-5.1)
[2021-03-08] MEDS: INSULIN HUMULIN R 100 UNIT/ML 3ML SQ SCH ×6 (06:00→20:55)
[2021-03-08] MEDS: POTASSIUM CHLORIDE 20MEQ/100ML 100 ML IV PRN ×2 (06:25→08:58)
[2021-03-08] MEDS: LINEZOLID 600 MG/ISO-OSM 300 ML IV SCH ×2 (08:57→21:50)
[2021-03-08] MEDS: PANTOPRAZOLE 40 MG/VIAL IVP SCH (08:57)
[2021-03-08] MEDS: HEPARIN 5,000 UNIT VIAL SQ SCH ×3 (08:59→19:49)
[2021-03-08] MEDS: MIDODRINE HCL 5 MG TABLET NG SCH ×3 (08:59→19:49)
[2021-03-08] MEDS: INSULIN GLARGINE 100 UNITS/ML 10 ML VIAL SQ SCH (19:50)
[2021-03-08] MEDS: HYDROCORTISONE 20 MG TABLET PO SCH (20:04)
[2021-03-09] VITALS (7 sets, daily range): BP systolic 115–146; BP diastolic 60–89
[2021-03-09] MEDS: LACTATED RINGERS 1000ML 1,000 ML IV SCH ×3 (00:14→13:35)
[2021-03-09] MEDS: IPRATROPIUM/ALBUTEROL SULFATE 3 ML SOLUTION IH SCH ×5 (00:29→23:15)
[2021-03-09] MEDS: 0.9% NACL 250ML IVPB SCH ×2 (01:34→15:32)
[2021-03-09] MEDS: DOXYCYCLINE 100MG+NS 250ML IV SCH ×2 (01:34→15:32)
[2021-03-09] MEDS: ZOSYN 3.375GM+NS 50ML 50 ML IV SCH ×3 (03:25→19:40)
[2021-03-09] MEDS: INSULIN HUMULIN R 100 UNIT/ML 3ML SQ SCH (05:57)
[2021-03-09] MEDS ORDERED: DEXTROSE 50%-WATER 50 ML DISP.SYRIN IV ONE (05:59)
[2021-03-09] MEDS ORDERED: GLUCAGON 1MG KIT 1 MG ML IM PRN (06:00)
[2021-03-09] MEDS ORDERED: DEXTROSE 50%-WATER 50 ML DISP.SYRIN IV PRN (06:00)
[2021-03-09] MEDS: LEVOTHYROXINE 75 MCG TABLET PO SCH (06:01)
[2021-03-09 06:06] LABS: BASOPHILS % (AUTO) 0.2 % (0.0-5.0); EOSINOPHILS % (AUTO) 0.1 % (0.0-8.0); HEMATOCRIT 28.4 % (36-48); MEAN CORPUSCULAR HEMOGLOBIN 30.3 pg (27.0-33.0); MEAN CORPUSCULAR HGB CONC 34.9 g/dL (32.0-36.0); MEAN CORPUSCULAR VOLUME 86.9 fL (79-99); MONOCYTES % (AUTO) 7.4 % (3.0-13.0); NEUTROPHILS % (AUTO) 58.7 % (40.0-77.0); NUCLEATED RED BLOOD CELLS 2.3 % (0.0-0.19); PLATELET COUNT (AUTO) 176 K/uL (130-400); RED BLOOD CELL COUNT(AUTO) 3.27 MIL/uL (4.00-5.50); RED CELL DISTRIBUTION WIDTH 13.4 % (11.0-15.5); WHITE BLOOD COUNT (AUTO) 19.5 K/uL (4.8-10.8)
[2021-03-09 06:22] LABS: CREATININE 0.7 mg/dL (0.5-1.5); MAGNESIUM 1.3 mg/dL (1.80-2.40)
[2021-03-09 06:26] LABS: POTASSIUM 2.8 mmol/L (3.5-5.1)
[2021-03-09] MEDS: POTASSIUM CHLORIDE 20MEQ/100ML 100 ML IV PRN ×2 (06:28→13:06)
[2021-03-09] MEDS: PANTOPRAZOLE 40 MG/VIAL IVP SCH (08:37)
[2021-03-09] MEDS: MAGNESIUM 2GM PREMIX 50ML 50 ML IV NR (08:37)
[2021-03-09] MEDS: HYDROCORTISONE 20 MG TABLET PO SCH ×3 (08:37→19:41)
[2021-03-09] MEDS: MIDODRINE HCL 5 MG TABLET NG SCH ×3 (08:37→19:40)
[2021-03-09] MEDS: HEPARIN 5,000 UNIT VIAL SQ SCH ×3 (08:38→19:40)
[2021-03-09] MEDS: LINEZOLID 600 MG/ISO-OSM 300 ML IV SCH ×2 (10:58→19:40)
[2021-03-10] MEDS: 0.9% NACL 250ML IVPB SCH ×2 (00:48→15:16)
[2021-03-10] MEDS: DOXYCYCLINE 100MG+NS 250ML IV SCH ×2 (00:48→15:16)
[2021-03-10] MEDS: LACTATED RINGERS 1000ML 1,000 ML IV SCH ×4 (01:10→16:44)
[2021-03-10] MEDS: ZOSYN 3.375GM+NS 50ML 50 ML IV SCH ×3 (03:12→21:03)
[2021-03-10 03:42] LABS: BASOPHILS % (AUTO) 0.2 % (0.0-5.0); EOSINOPHILS % (AUTO) 0.1 % (0.0-8.0); HEMATOCRIT 32.4 % (36-48); LYMPHOCYTES % (AUTO) 27.6 % (21.0-51.0); MEAN CORPUSCULAR HEMOGLOBIN 29.8 pg (27.0-33.0); MEAN CORPUSCULAR HGB CONC 34.6 g/dL (32.0-36.0); MEAN CORPUSCULAR VOLUME 86.2 fL (79-99); MONOCYTES % (AUTO) 8.4 % (3.0-13.0); NEUTROPHILS % (AUTO) 62.8 % (40.0-77.0); NUCLEATED RED BLOOD CELLS 3.8 % (0.0-0.19); PLATELET COUNT (AUTO) 241 K/uL (130-400); RED BLOOD CELL COUNT(AUTO) 3.76 MIL/uL (4.00-5.50); RED CELL DISTRIBUTION WIDTH 12.9 % (11.0-15.5); WHITE BLOOD COUNT (AUTO) 13.2 K/uL (4.8-10.8)
[2021-03-10 03:52] LABS: CREATININE 0.7 mg/dL (0.5-1.5); MAGNESIUM 1.4 mg/dL (1.80-2.40); POTASSIUM 3.4 mmol/L (3.5-5.1)
[2021-03-10 04:15] VITALS: BP 122/87
[2021-03-10] MEDS: LEVOTHYROXINE 75 MCG TABLET PO SCH (04:32)
[2021-03-10] MEDS: MAGNESIUM 2GM PREMIX 50ML 50 ML IV NR (04:33)
[2021-03-10] MEDS: POTASSIUM CHLORIDE 20MEQ/100ML 100 ML IV PRN (04:33)
[2021-03-10] MEDS: IPRATROPIUM/ALBUTEROL SULFATE 3 ML SOLUTION IH SCH ×4 (06:22→23:55)
[2021-03-10] MEDS: HYDROCORTISONE 20 MG TABLET PO SCH ×4 (06:32→21:04)
[2021-03-10 07:59] VITALS: BP_SYST 117; BP_SYST 121; BP_DIAS 72; BP_DIAS 77
[2021-03-10] MEDS: LINEZOLID 600 MG/ISO-OSM 300 ML IV SCH ×2 (10:13→21:04)
[2021-03-10] MEDS: PANTOPRAZOLE 40 MG/VIAL IVP SCH (10:13)
[2021-03-10] MEDS: HEPARIN 5,000 UNIT VIAL SQ SCH ×3 (10:14→21:05)
[2021-03-10] MEDS: MIDODRINE HCL 5 MG TABLET NG SCH ×3 (10:17→21:04)
[2021-03-10 11:27] VITALS: BP 117/69
[2021-03-10 16:00] VITALS: BP 128/74
[2021-03-10 20:06] VITALS: BP 114/64
[2021-03-10] MEDS ORDERED: 0.9%NACL 50ML 50 ML IV ONE (20:53)
[2021-03-10 23:33] VITALS: BP 132/77
[2021-03-11] MEDS: 0.9% NACL 250ML IVPB SCH ×2 (03:39→15:58)
[2021-03-11] MEDS: LACTATED RINGERS 1000ML 1,000 ML IV SCH (03:39)
[2021-03-11] MEDS: DOXYCYCLINE 100MG+NS 250ML IV SCH ×2 (03:39→15:58)
[2021-03-11 04:10] VITALS: BP 125/77
[2021-03-11 04:40] LABS: BASOPHILS % (AUTO) 0.2 % (0.0-5.0); EOSINOPHILS % (AUTO) 1.7 % (0.0-8.0); HEMATOCRIT 32.5 % (36-48); LYMPHOCYTES % (AUTO) 36.7 % (21.0-51.0); MEAN CORPUSCULAR HEMOGLOBIN 29.9 pg (27.0-33.0); MEAN CORPUSCULAR HGB CONC 34.8 g/dL (32.0-36.0); MONOCYTES % (AUTO) 10.5 % (3.0-13.0); NEUTROPHILS % (AUTO) 50.4 % (40.0-77.0); NUCLEATED RED BLOOD CELLS 2.3 % (0.0-0.19); PLATELET COUNT (AUTO) 343 K/uL (130-400); RED BLOOD CELL COUNT(AUTO) 3.78 MIL/uL (4.00-5.50); WHITE BLOOD COUNT (AUTO) 12.1 K/uL (4.8-10.8)
[2021-03-11 04:42] LABS: CREATININE 0.6 mg/dL (0.5-1.5); POTASSIUM 3.6 mmol/L (3.5-5.1)
[2021-03-11] MEDS ORDERED: 0.9%NACL 50ML 50 ML IV ONE ×2 (04:52→19:47)
[2021-03-11] MEDS: ZOSYN 3.375GM+NS 50ML 50 ML IV SCH ×3 (05:03→22:51)
[2021-03-11] MEDS: IPRATROPIUM/ALBUTEROL SULFATE 3 ML SOLUTION IH SCH ×3 (06:45→18:19)
[2021-03-11] MEDS: LEVOTHYROXINE 75 MCG TABLET PO SCH (06:49)
[2021-03-11 07:51] VITALS: BP 131/78
[2021-03-11] MEDS: LINEZOLID 600 MG/ISO-OSM 300 ML IV SCH ×2 (11:08→22:52)
[2021-03-11] MEDS: PANTOPRAZOLE 40 MG/VIAL IVP SCH (11:08)
[2021-03-11] MEDS: HYDROCORTISONE 20 MG TABLET PO SCH ×3 (11:08→22:51)
[2021-03-11] MEDS: MIDODRINE HCL 5 MG TABLET NG SCH ×3 (11:08→22:51)
[2021-03-11 11:11] VITALS: BP 118/68
[2021-03-11] MEDS: HEPARIN 5,000 UNIT VIAL SQ SCH ×3 (12:34→22:53)
[2021-03-11 16:31] VITALS: BP 114/75
[2021-03-11 20:22] VITALS: BP 110/57
[2021-03-11 23:26] VITALS: BP 101/67
[2021-03-12] MEDS: DOXYCYCLINE 100MG+NS 250ML IV SCH (03:29)
[2021-03-12] MEDS: 0.9% NACL 250ML IVPB SCH (03:29)
[2021-03-12 04:10] VITALS: BP 106/62
[2021-03-12] MEDS ORDERED: 0.9%NACL 50ML 50 ML IV ONE (04:25)
[2021-03-12 05:03] LABS: BASOPHILS % (AUTO) 0.2 % (0.0-5.0); EOSINOPHILS % (AUTO) 3.1 % (0.0-8.0); HEMATOCRIT 32.7 % (36-48); LYMPHOCYTES % (AUTO) 36.6 % (21.0-51.0); MEAN CORPUSCULAR HEMOGLOBIN 30.1 pg (27.0-33.0); MEAN CORPUSCULAR HGB CONC 34.6 g/dL (32.0-36.0); MEAN CORPUSCULAR VOLUME 87.2 fL (79-99); MONOCYTES % (AUTO) 9.3 % (3.0-13.0); NEUTROPHILS % (AUTO) 50.2 % (40.0-77.0); NUCLEATED RED BLOOD CELLS 2.1 % (0.0-0.19); PLATELET COUNT (AUTO) 369 K/uL (130-400); RED BLOOD CELL COUNT(AUTO) 3.75 MIL/uL (4.00-5.50); RED CELL DISTRIBUTION WIDTH 13.2 % (11.0-15.5); WHITE BLOOD COUNT (AUTO) 13.7 K/uL (4.8-10.8)
[2021-03-12 05:04] LABS: CREATININE 0.6 mg/dL (0.5-1.5); POTASSIUM 3.5 mmol/L (3.5-5.1)
[2021-03-12] MEDS: POTASSIUM CHLORIDE 20MEQ/100ML 100 ML IV PRN (05:57)
[2021-03-12] MEDS: ZOSYN 3.375GM+NS 50ML 50 ML IV SCH (05:57)
[2021-03-12] MEDS: IPRATROPIUM/ALBUTEROL SULFATE 3 ML SOLUTION IH SCH ×2 (06:00)
[2021-03-12] MEDS: LEVOTHYROXINE 75 MCG TABLET PO SCH (06:06)
[2021-03-12 06:38] VITALS: BP 121/76
[2021-03-12] MEDS: HEPARIN 5,000 UNIT VIAL SQ SCH (08:40)
[2021-03-12] MEDS: PANTOPRAZOLE 40 MG/VIAL IVP SCH (08:41)
[2021-03-12] MEDS ORDERED: FLUDROCORTISONE ACETATE 0.1 MG TABLET PO SCH (09:00)
[2021-03-12] MEDS ORDERED: PANTOPRAZOLE 40 MG TAB DR PO SCH (09:00)
[2021-03-12] MEDS: MIDODRINE HCL 5 MG TABLET NG SCH (09:10)
[2021-03-12] MEDS: HYDROCORTISONE 20 MG TABLET PO SCH (09:10)
[2021-03-12] MEDS: LINEZOLID 600 MG/ISO-OSM 300 ML IV SCH (09:30)
[2021-03-12 12:00] VITALS: BP 127/83
== END 2021-03-12 15:00 | disposition home or self-care (01) | DRG 871 ==
LOC: EDH 06:15 → EDHIP 08:30 → 2DH 12:31 → 4BH 03-08 16:10
PROVIDERS: ADMIT Hospitalist; ATTEND Hospitalist
PROC: 5A1945Z Respiratory Ventilation, 24-96 Consecutive Hours (ICD-10-PCS; principal; 2021-03-04)
PROC: 0BH17EZ Insertion of Endotracheal Airway into Trachea, Via Natural or Artificial Opening (ICD-10-PCS; 2021-03-04)
PROC: 05HY33Z Insertion of Infusion Device into Upper Vein, Percutaneous Approach (ICD-10-PCS; 2021-03-04)
PROC: B543ZZA Ultrasonography of Right Jugular Veins, Guidance (ICD-10-PCS; 2021-03-04)
DX: A41.9 Sepsis, unspecified organism (principal); I21.4 Non-ST elevation (NSTEMI) myocardial infarction; R65.21 Severe sepsis with septic shock; J96.01 Acute respiratory failure with hypoxia; J18.9 Pneumonia, unspecified organism; N17.0 Acute kidney failure with tubular necrosis; E87.1 Hypo-osmolality and hyponatremia; D84.9 Immunodeficiency, unspecified; E27.40 Unspecified adrenocortical insufficiency; G93.40 Encephalopathy, unspecified; I47.1 Supraventricular tachycardia; J44.0 Chronic obstructive pulmonary disease with (acute) lower respiratory infection; M62.82 Rhabdomyolysis; N30.00 Acute cystitis without hematuria; E87.8 Other disorders of electrolyte and fluid balance, not elsewhere classified; E87.6 Hypokalemia; L80 Vitiligo; E03.9 Hypothyroidism, unspecified; Z20.822 Contact with and (suspected) exposure to COVID-19; D64.9 Anemia, unspecified; E11.649 Type 2 diabetes mellitus with hypoglycemia without coma; E11.65 Type 2 diabetes mellitus with hyperglycemia; E66.9 Obesity, unspecified; E83.42 Hypomagnesemia; E86.0 Dehydration; R53.81 Other malaise; I45.10 Unspecified right bundle-branch block; T38.0X5A Adverse effect of glucocorticoids and synthetic analogues, initial encounter; X30.XXXA Exposure to excessive natural heat, initial encounter; Y93.89 Activity, other specified; Y92.89 Other specified places as the place of occurrence of the external cause; Y99.8 Other external cause status; Z74.01 Bed confinement status; Z79.4 Long term (current) use of insulin; Z79.52 Long term (current) use of systemic steroids; Z82.0 Family history of epilepsy and other diseases of the nervous system; Z82.3 Family history of stroke; Z82.49 Family history of ischemic heart disease and other diseases of the circulatory system; Z82.5 Family history of asthma and other chronic lower respiratory diseases; Z83.3 Family history of diabetes mellitus; Z90.49 Acquired absence of other specified parts of digestive tract; Z68.28 Body mass index [BMI] 28.0-28.9, adult
CPT/HCPCS: 31500; 36415; 36600; 70450; 71045; 71250; 72125; 74018; 74176; 74230; 76770; 80048; 80053; 80305; 80400; 81001; 81025; 82088; 82140; 82270; 82435; 82533; 82550; 82627; 82803; 82947; 82948; 83036; 83605; 83690; 83735; 84100; 84132; 84244; 84295; 84439; 84443; 84481; 84484; 85018; 85025; 85027; 86757; 87040; 87088; 87635; 87804; 92526; 92610; 92611; 93005; 93306; 93356; 93970; 94002; 94003; 94150; 94640; 97039; 99291; C9113; G0378; G0481; J0153; J0330; J1644; J1720; J1815; J2020; J2310; J2543; J2704; J2930; J3010; J3475; J3480; J3490; J7030; J7050; J7070; J7120; Q9963

== ENCOUNTER 2022-06-27 04:59 | Inpatient (IN) | payer OTHER ==
[2022-06-27] VITALS (7 sets, daily range): BP systolic 87–107; BP diastolic 36–59
[~2022-06-27] VITALS: Ht 157.5 cm; Wt 63.4 kg
[2022-06-27] MEDS ORDERED: ONDANSETRON 4MG INJ IVP ONE (05:30)
[2022-06-27] MEDS ORDERED: LACTATED RINGERS 1000ML 1,000 ML IV ONE (05:30)
[2022-06-27] MEDS ORDERED: DEXTROSE 50%-WATER 50 ML DISP.SYRIN IV ONE ×2 (05:37→06:00)
[2022-06-27] MEDS ORDERED: 0.9%NACL 1000ML 1,000 ML IV ONE ×3 (06:00→08:00)
[2022-06-27 06:36] LABS: CREATININE 4.8 mg/dL (0.5-1.5); POTASSIUM 3.4 mmol/L (3.5-5.1); TOTAL PROTEIN, SERUM 6.4 g/dL (6.0-8.3)
[2022-06-27] MEDS ORDERED: HEPARIN 25,000 UNITS/250ML D5W 250 ML IV PRN (07:00)
[2022-06-27] MEDS ORDERED: NOREPINEPHRIN 4MG/NS 250ML 250 ML IV PRN (07:00)
[2022-06-27] MEDS ORDERED: ASPIRIN 81MG CHEW TAB PO ONE (07:00)
[2022-06-27] MEDS ORDERED: MORPHINE 4 MG SYG IVP ONE (07:00)
[2022-06-27 07:10] LABS: BASOPHILS % (AUTO) 0.6 % (0.0-5.0); HEMATOCRIT 36.9 % (36-48); LYMPHOCYTES % (AUTO) 9.2 % (21.0-51.0); MEAN CORPUSCULAR HEMOGLOBIN 29.8 pg (27.0-33.0); MEAN CORPUSCULAR HGB CONC 34.4 g/dL (32.0-36.0); MEAN CORPUSCULAR VOLUME 86.6 fL (79-99); MONOCYTES % (AUTO) 4.9 % (3.0-13.0); NEUTROPHILS % (AUTO) 83.5 % (40.0-77.0); PLATELET COUNT (AUTO) 127 K/uL (130-400); RED BLOOD CELL COUNT(AUTO) 4.26 MIL/uL (4.00-5.50); RED CELL DISTRIBUTION WIDTH 13.5 % (11.0-15.5); WHITE BLOOD COUNT (AUTO) 14.7 K/uL (4.8-10.8)
[2022-06-27] MEDS ORDERED: ONDANSETRON 4MG INJ IV PRN (07:30)
[2022-06-27] MEDS ORDERED: 0.9%NACL 1000ML 1,000 ML IV SCH (07:30)
[2022-06-27] MEDS ORDERED: ACETAMINOPHEN 325 MG TAB PO PRN ×2 (07:30)
[2022-06-27 07:36] LABS: B-TYPE NATRIURETIC PEPTIDE 25 pg/mL (0-100); INR 1.27 (0.85-1.15); PROTHROMBIN TIME 13.7 SEC (9.6-11.6)
[2022-06-27 07:38] LABS: PARTIAL THROMBOPLASTIN TIME 28.8 SEC (26.3-35.5)
[2022-06-27] MEDS ORDERED: HYDROCORTISONE SOD SUCCINATE 100 MG/2 ML VIAL ONE (07:47)
[2022-06-27] MEDS: 0.9%NACL 1000ML 1,000 ML IV SCH ×4 (07:48→23:36)
[2022-06-27] MEDS: PANTOPRAZOLE 40 MG/VIAL IVP SCH ×2 (07:48→21:17)
[2022-06-27] MEDS: HYDROCORTISONE SOD SUCCINATE 100 MG/2 ML VIAL IV SCH ×3 (07:48→21:09)
[2022-06-27] MEDS ORDERED: VANCOMYCIN PROTOCOL PER PHARMACY IV PRN (08:00)
[2022-06-27] MEDS: VANCOMYCIN 1G/250ML KIT 250 ML IV SCH (08:06)
[2022-06-27] MEDS ORDERED: POTASSIUM CHLORIDE 10MEQ/100ML 100 ML IV PRN (08:30)
[2022-06-27] MEDS ORDERED: LIDOCAINE HCL-MPF 1% 2ML VIAL IV PRN ×2 (08:30→18:30)
[2022-06-27 08:38] LABS: ABG BASE EXCESS -8.7 mmol/L (-2.0-3.0); ABG HCO3 16.5 mmol/L (21.0-28.0); ABG OXYGEN SATURATION 73.9 % (95.0-99.0); ABG PCO2 34 mmHg (32-45)
[2022-06-27 08:42] LABS: CREATININE,URINE RANDOM 76 mg/dL (30-135); SODIUM,URINE RANDOM 101 mmol/l (40-220)
[2022-06-27 08:45] LABS: APPEARANCE,URINE CLOUDY (CLEAR); BILIRUBIN,URINE NEGATIVE (NEGATIVE); COLOR,URINE LIGHT-YELLOW (YELLOW); GLUCOSE, URINE (UA) NEGATIVE (NEGATIVE); KETONES,URINE NEGATIVE (NEGATIVE); LEUKOCYTE ESTERASE ,URINE 500 Leu/uL (NEGATIVE); NITRATE,URINE NEGATIVE (NEGATIVE); OCCULT BLOOD,URINE MODERATE (NEGATIVE); PH,URINE 5.5 (5.0-8.0); PROTEIN,URINE 50 mg/dL (NEGATIVE); UROBILINOGEN,URINE 0.2 mg/dL (0.2-1.0)
[2022-06-27 08:46] LABS: AMPHET/METH SCREEN,URINE NEGATIVE (NEGATIVE); BARBITURATE SCREEN, URINE NEGATIVE (NEGATIVE); BENZODIAZEPINES SCREEN,URINE NEGATIVE (NEGATIVE); CANNABINOID SCREEN,URINE NEGATIVE (NEGATIVE); COCAINE SCREEN,URINE NEGATIVE (NEGATIVE); OPIATE SCREEN,URINE NEGATIVE (NEGATIVE); PHENCYCLIDINE SCREEN,URINE NEGATIVE (NEGATIVE)
[2022-06-27 08:50] LABS: BACTERIA,URINE MOD /HPF (None Seen); MUCUS,URINE MOD LPF (None Seen); OTHER CASTS, URINE 2 /LPF (None Seen); SQUAMOUS EPITHELIAL CELL,UR MOD /HPF (0-2); TRANSITIONAL EPI CELLS,URINE RARE /HPF (None Seen); WBC,URINE 26-50 /HPF (0-1)
[2022-06-27 08:54] LABS: ALCOHOL, BLOOD < 3 mg/dL (0-10); SALICYLATE < 2.8 mg/dL (2.8-20.0)
[2022-06-27 08:55] LABS: THYROID STIMULATING HORMONE 25.93 uIU/mL (0.36-3.74)
[2022-06-27] MEDS: ASPIRIN 81MG CHEW TAB PO SCH (09:00)
[2022-06-27 09:13] LABS: PHOSPHORUS 2.7 mg/dL (2.5-4.9)
[2022-06-27 09:37] LABS: HEMOGLOBIN A1C 5.3 % (4.0-6.0)
[2022-06-27] MEDS ORDERED: RENAL DOSE IV SCH (10:30)
[2022-06-27] MEDS ORDERED: MAGNESIUM 2GM PREMIX 50ML 50 ML IV SCH (10:30)
[2022-06-27] MEDS ORDERED: COMPOUND PO MISCELLANEOUS 1 EACH MISC MISC PRN (10:30)
[2022-06-27] MEDS: OSELTAMIVIR SUSP 15 MG/ML (6 CAPS/29ML) PO SCH ×2 (11:55)
[2022-06-27] MEDS: INSULIN HUMULIN R 100 UNIT/ML 3ML SQ SCH ×2 (12:00→18:00)
[2022-06-27 13:44] LABS: CREATININE 2.4 mg/dL (0.5-1.5); MAGNESIUM 1.5 mg/dL (1.80-2.40); PHOSPHORUS 3.3 mg/dL (2.5-4.9); POTASSIUM 3.6 mmol/L (3.5-5.1)
[2022-06-27] MEDS ORDERED: HEPARIN 5,000 UNIT VIAL ONE (13:54)
[2022-06-27] MEDS: MIDODRINE HCL 5 MG TABLET PO SCH ×2 (14:00→21:10)
[2022-06-27] MEDS ORDERED: MIDODRINE HCL 5 MG TABLET ONE (14:08)
[2022-06-27 17:11] LABS: CREATININE 1.9 mg/dL (0.5-1.5); MAGNESIUM 1.7 mg/dL (1.80-2.40); POTASSIUM 3.4 mmol/L (3.5-5.1)
[2022-06-27] MEDS ORDERED: POTASSIUM CHLORIDE 20MEQ/100ML 100 ML IV PRN (18:30)
[2022-06-27] MEDS ORDERED: POTASSIUM CHLORIDE 10% ELIXIR 20 MEQ/15 ML UDCUP PO PRN (18:30)
[2022-06-27] MEDS ORDERED: ZOSYN 3.375GM+NS 50ML 50 ML ONE (19:20)
[2022-06-27 20:45] LABS: MAGNESIUM 1.7 mg/dL (1.80-2.40); PHOSPHORUS 2.4 mg/dL (2.5-4.9); POTASSIUM 3.2 mmol/L (3.5-5.1)
[2022-06-27] MEDS ORDERED: OSELTAMIVIR PHOSPHATE 75 MG CAP PO SCH (21:00)
[2022-06-27] MEDS: ZOSYN 3.375GM+NS 50ML 50 ML IV SCH (21:09)
[2022-06-27] MEDS: KCL 20 MEQ ERTAB PO PRN ×2 (21:10→22:20)
[2022-06-28 00:02] VITALS: BP 95/56
[2022-06-28] MEDS: KCL 20 MEQ ERTAB PO PRN ×3 (01:43→21:32)
[2022-06-28] MEDS: 0.9%NACL 1000ML 1,000 ML IV SCH ×4 (03:50→21:35)
[2022-06-28 04:12] VITALS: BP 99/86
[2022-06-28 04:20] LABS: INR 1.21 (0.85-1.15)
[2022-06-28] MEDS ORDERED: LEVOTHYROXINE 75 MCG TABLET ONE (05:09)
[2022-06-28] MEDS: INSULIN HUMULIN R 100 UNIT/ML 3ML SQ SCH ×4 (06:00→17:22)
[2022-06-28] MEDS: MIDODRINE HCL 5 MG TABLET PO SCH ×2 (06:43→14:04)
[2022-06-28] MEDS ORDERED: LEVOTHYROXINE 75 MCG TABLET PO SCH (07:30)
[2022-06-28 08:33] VITALS: BP 87/52
[2022-06-28] MEDS: ZOSYN 3.375GM+NS 50ML 50 ML IV SCH ×2 (08:36→21:15)
[2022-06-28] MEDS: HYDROCORTISONE SOD SUCCINATE 100 MG/2 ML VIAL IV SCH ×3 (08:36→21:15)
[2022-06-28] MEDS: PANTOPRAZOLE 40 MG/VIAL IVP SCH ×2 (08:36→21:16)
[2022-06-28] MEDS: OSELTAMIVIR SUSP 15 MG/ML (6 CAPS/29ML) PO SCH ×2 (08:37)
[2022-06-28] MEDS: ASPIRIN 81MG CHEW TAB PO SCH (09:00)
[2022-06-28 10:51] VITALS: BP 90/54
[2022-06-28 11:04] LABS: CREATININE 1.3 mg/dL (0.5-1.5); MAGNESIUM 1.8 mg/dL (1.80-2.40); PHOSPHORUS 2.3 mg/dL (2.5-4.9); POTASSIUM 3.9 mmol/L (3.5-5.1)
[2022-06-28 11:14] LABS: INR 1.11 (0.85-1.15)
[2022-06-28 13:05] LABS: CREATININE 1.2 mg/dL (0.5-1.5); MAGNESIUM 1.8 mg/dL (1.80-2.40); PHOSPHORUS 1.9 mg/dL (2.5-4.9); POTASSIUM 3.9 mmol/L (3.5-5.1)
[2022-06-28] MEDS ORDERED: MIDODRINE HCL 5 MG TABLET PO PRN (14:30)
[2022-06-28 16:12] VITALS: BP 90/52
[2022-06-28 16:48] LABS: BASOPHILS % (AUTO) 0.1 % (0.0-5.0); HEMATOCRIT 30.2 % (36-48); LYMPHOCYTES % (AUTO) 11.4 % (21.0-51.0); MEAN CORPUSCULAR HEMOGLOBIN 30.1 pg (27.0-33.0); MEAN CORPUSCULAR HGB CONC 34.8 g/dL (32.0-36.0); MEAN CORPUSCULAR VOLUME 86.5 fL (79-99); MONOCYTES % (AUTO) 2.8 % (3.0-13.0); NEUTROPHILS % (AUTO) 85.2 % (40.0-77.0); PLATELET COUNT (AUTO) 229 K/uL (130-400); RED BLOOD CELL COUNT(AUTO) 3.49 MIL/uL (4.00-5.50); RED CELL DISTRIBUTION WIDTH 14.5 % (11.0-15.5); WHITE BLOOD COUNT (AUTO) 20.1 K/uL (4.8-10.8)
[2022-06-28 17:01] LABS: CREATININE 1.2 mg/dL (0.5-1.5); MAGNESIUM 1.7 mg/dL (1.80-2.40); PHOSPHORUS 1.9 mg/dL (2.5-4.9); POTASSIUM 3.7 mmol/L (3.5-5.1)
[2022-06-28] MEDS: NEUTRA-PHOS PACKET 1 EACH PO SCH ×2 (17:28→21:16)
[2022-06-28] MEDS ORDERED: HYDROCORTISONE SOD SUCCINATE 100 MG/2 ML VIAL ONE (19:20)
[2022-06-28 20:48] VITALS: BP 92/57
[2022-06-28 21:05] LABS: CREATININE 1.1 mg/dL (0.5-1.5); MAGNESIUM 1.6 mg/dL (1.80-2.40); PHOSPHORUS 2.7 mg/dL (2.5-4.9); POTASSIUM 3.6 mmol/L (3.5-5.1)
[2022-06-29 00:18] VITALS: BP 92/56
[2022-06-29 03:58] VITALS: BP 94/62
[2022-06-29] MEDS: 0.9%NACL 1000ML 1,000 ML IV SCH ×3 (05:00→10:00)
[2022-06-29] MEDS ORDERED: LEVOTHYROXINE 100 MCG TABLET ONE (05:03)
[2022-06-29 05:08] LABS: BASOPHILS % (AUTO) 0.1 % (0.0-5.0); HEMATOCRIT 31.3 % (36-48); LYMPHOCYTES % (AUTO) 14.9 % (21.0-51.0); MEAN CORPUSCULAR HEMOGLOBIN 29.8 pg (27.0-33.0); MEAN CORPUSCULAR HGB CONC 33.9 g/dL (32.0-36.0); MEAN CORPUSCULAR VOLUME 87.9 fL (79-99); MONOCYTES % (AUTO) 5.2 % (3.0-13.0); NEUTROPHILS % (AUTO) 79.3 % (40.0-77.0); NUCLEATED RED BLOOD CELLS 0.1 % (0.0-0.19); PLATELET COUNT (AUTO) 232 K/uL (130-400); RED BLOOD CELL COUNT(AUTO) 3.56 MIL/uL (4.00-5.50); RED CELL DISTRIBUTION WIDTH 14.5 % (11.0-15.5); WHITE BLOOD COUNT (AUTO) 16.7 K/uL (4.8-10.8)
[2022-06-29 05:13] LABS: MAGNESIUM 2.3 mg/dL (1.80-2.40)
[2022-06-29] MEDS: INSULIN HUMULIN R 100 UNIT/ML 3ML SQ SCH ×3 (05:52→12:00)
[2022-06-29] MEDS ORDERED: LEVOTHYROXINE 100 MCG TABLET PO SCH (07:30)
[2022-06-29 08:00] VITALS: BP 87/54
[2022-06-29] MEDS: NEUTRA-PHOS PACKET 1 EACH PO SCH ×2 (08:20→12:13)
[2022-06-29] MEDS: PANTOPRAZOLE 40 MG/VIAL IVP SCH (08:20)
[2022-06-29] MEDS: HYDROCORTISONE SOD SUCCINATE 100 MG/2 ML VIAL IV SCH (08:20)
[2022-06-29] MEDS: ASPIRIN 81MG CHEW TAB PO SCH (08:20)
[2022-06-29] MEDS: VANCOMYCIN 1G/250ML KIT 250 ML IV SCH (08:20)
[2022-06-29] MEDS: OSELTAMIVIR SUSP 15 MG/ML (6 CAPS/29ML) PO SCH ×2 (08:22)
[2022-06-29] MEDS ORDERED: MAGNESIUM CHLORIDE 70 MG TABLET.SA PO SCH (09:00)
[2022-06-29] MEDS: ZOSYN 3.375GM+NS 50ML 50 ML IV SCH (09:30)
[2022-06-29 12:00] VITALS: BP 122/74
[2022-06-29] MEDS ORDERED: CEPHALEXIN 500 MG CAPSULE PO SCH (14:30)
[2022-06-29] MEDS ORDERED: Magnesium Chloride PO (14:54)
[2022-06-29] MEDS ORDERED: ONDA8TAB12 PO (14:54)
[2022-06-29] MEDS ORDERED: HYDR-4419 PO (14:54)
[2022-06-29] MEDS ORDERED: CEPH500C2 PO (14:54)
[2022-06-29] MEDS ORDERED: LEVO100T4 PO (14:54)
[2022-06-29] MEDS ORDERED: ASPI-1005 PO (14:54)
[2022-06-29] MEDS ORDERED: PANT40TA PO (14:54)
[2022-06-29 16:00] VITALS: BP 98/72
[2022-06-29] MEDS ORDERED: PANTOPRAZOLE 40 MG TAB DR PO SCH (21:00)
[2022-06-29] MEDS ORDERED: HYDROCORTISONE 20 MG TABLET PO SCH ×2 (21:00)
== END 2022-06-29 17:10 | disposition home or self-care (01) | DRG 871 ==
LOC: EDH 04:59 → EDHIP 07:18 → 4DH 09:20
PROVIDERS: ADMIT Internal Medicine; ATTEND Internal Medicine
DX: A41.9 Sepsis, unspecified organism (principal); I21.A1 Myocardial infarction type 2; R57.0 Cardiogenic shock; N17.0 Acute kidney failure with tubular necrosis; E87.4 Mixed disorder of acid-base balance; E87.1 Hypo-osmolality and hyponatremia; N39.0 Urinary tract infection, site not specified; I47.1 Supraventricular tachycardia; N18.4 Chronic kidney disease, stage 4 (severe); R65.20 Severe sepsis without septic shock; E87.6 Hypokalemia; D69.6 Thrombocytopenia, unspecified; B96.20 Unspecified Escherichia coli [E. coli] as the cause of diseases classified elsewhere; E03.9 Hypothyroidism, unspecified; E86.1 Hypovolemia; I12.9 Hypertensive chronic kidney disease with stage 1 through stage 4 chronic kidney disease, or unspecified chronic kidney disease; J10.1 Influenza due to other identified influenza virus with other respiratory manifestations; Z91.199 Patient's noncompliance with other medical treatment and regimen due to unspecified reason; Z79.52 Long term (current) use of systemic steroids; Z82.49 Family history of ischemic heart disease and other diseases of the circulatory system
CPT/HCPCS: 36415; 36600; 76770; 80048; 80053; 80305; 81001; 82533; 82550; 82570; 82803; 82948; 83036; 83605; 83690; 83735; 83874; 83880; 83930; 83935; 84100; 84145; 84300; 84439; 84443; 84481; 84484; 84550; 84702; 85025; 85610; 85730; 87040; 87077; 87088; 87186; 87635; 87804; 93005; 93306; 93356; 99291; C9113; G0378; G0481; J1644; J1720; J2405; J2543; J3370; J3475; J7030; J7070; J7120

== ENCOUNTER 2022-11-15 07:37 | Emergency (ER) | payer BC, OTHER ==
[~2022-11-15] VITALS: Ht 157.5 cm; Wt 62.6 kg
[~2022-11-15 07:37] MED LIST changes: +ASPI-1005 PO; +CEPH500C2 PO; +LEVO100T4 PO; -LEVO75TA10 PO; +Magnesium Chloride PO; +ONDA8TAB12 PO; +PANT40TA PO
[2022-11-15] MEDS ORDERED: ONDANSETRON 4MG INJ ONE (08:06)
[2022-11-15 08:16] LABS: BASOPHILS % (AUTO) 0.9 % (0.0-5.0); EOSINOPHILS % (AUTO) 2.7 % (0.0-8.0); LYMPHOCYTES % (AUTO) 27.3 % (21.0-51.0); MEAN CORPUSCULAR HGB CONC 34.5 g/dL (32.0-36.0); MONOCYTES % (AUTO) 20.5 % (3.0-13.0); NEUTROPHILS % (AUTO) 48.1 % (40.0-77.0); PLATELET COUNT (AUTO) 445 K/uL (130-400); RED BLOOD CELL COUNT(AUTO) 5.83 MIL/uL (4.00-5.50); RED CELL DISTRIBUTION WIDTH 13.5 % (11.0-15.5); WHITE BLOOD COUNT (AUTO) 13.8 K/uL (4.8-10.8)
[2022-11-15 08:23] LABS: ALBUMIN 4.1 g/dL (3.5-5.0); CREATININE 2.9 mg/dL (0.5-1.5); POTASSIUM 4.5 mmol/L (3.5-5.1)
[2022-11-15] MEDS ORDERED: ONDANSETRON 4MG INJ IVP ONE (08:30)
[2022-11-15] MEDS ORDERED: 0.9%NACL 1000ML 1,002 ML IV ONE (08:30)
[2022-11-15 09:53] VITALS: BP 130/78
[2022-11-15] MEDS ORDERED: IOHEXOL 350 MG/ML 100ML INFUS..BTL IV ONE (10:34)
[2022-11-15 10:48] LABS: HCG,QUALITATIVE URINE NEGATIVE (NEGATIVE)
[2022-11-15 11:00] LABS: APPEARANCE,URINE CLOUDY (CLEAR); BILIRUBIN,URINE 1 mg/dL (NEGATIVE); COLOR,URINE YELLOW (YELLOW); GLUCOSE, URINE (UA) NEGATIVE (NEGATIVE); KETONES,URINE 20 mg/dL (NEGATIVE); LEUKOCYTE ESTERASE ,URINE 500 Leu/uL (NEGATIVE); NITRATE,URINE NEGATIVE (NEGATIVE); OCCULT BLOOD,URINE SMALL (NEGATIVE); PH,URINE 5.5 (5.0-8.0); PROTEIN,URINE 50 mg/dL (NEGATIVE)
[2022-11-15 11:07] LABS: BACTERIA,URINE MANY /HPF (None Seen); HYALINE CASTS, URINE >100 /LPF (0-1 /LPF); MUCUS,URINE RARE LPF (None Seen); SQUAMOUS EPITHELIAL CELL,UR MOD /HPF (0-2); TRANSITIONAL EPI CELLS,URINE FEW /HPF (None Seen); WBC,URINE >100 /HPF (0-1)
[2022-11-15] MEDS ORDERED: CEFTRIAXONE 1G VIAL IVPB ONE (13:00)
[2022-11-15] MEDS ORDERED: 0.9%NACL 1000ML 1,000 ML IV ONE (13:00)
[2022-11-15] MEDS ORDERED: CEPH500T PO (13:17)
[2022-11-15] MEDS ORDERED: ONDA4TAB10 PO (13:32)
== END 2022-11-15 13:43 | disposition home or self-care (01) ==
LOC: EDH 07:37
DX: N18.4 Chronic kidney disease, stage 4 (severe) (principal); N39.0 Urinary tract infection, site not specified; R10.9 Unspecified abdominal pain; R11.10 Vomiting, unspecified; E87.1 Hypo-osmolality and hyponatremia; Z79.82 Long term (current) use of aspirin; Z79.899 Other long term (current) drug therapy; Z90.49 Acquired absence of other specified parts of digestive tract
CPT/HCPCS: 99284; 74176; 96374; 96361; 96375; 80053; 83690; 85025; 81001; 81025; 36415; J7030; J0696; J2405; Q9967

== ENCOUNTER 2025-04-07 13:10 | Inpatient (IN) | payer SELFPAY ==
[~2025-04-07] VITALS: Ht 157.5 cm; Wt 72.6 kg
[~2025-04-07 13:10] MED LIST changes: +AEC81 PO; -ASPI-1005 PO; +ATOR40TA69 PO; +CEPH500B PO; -CEPH500C2 PO; +ERGO500093 PO; +HYDR20TA24 PO; +LEVO100T12 PO; -LEVO100T4 PO; -Magnesium Chloride PO; -ONDA8TAB12 PO; -PANT40TA PO
[2025-04-07 13:28] LABS: IMMATURE GRANULOCYTE ABSOLUTE 0.14 K/uL (0-1); NUCLEATED RED BLOOD CELLS 0.0 % (0.0-0.19); PLATELET COUNT (AUTO) 415 K/uL (130-400); RED BLOOD CELL COUNT(AUTO) 4.83 MIL/uL (4.00-5.50); RED CELL DISTRIBUTION WIDTH 13.6 % (11.0-15.5); WHITE BLOOD COUNT (AUTO) 19.1 K/uL (4.8-10.8)
[2025-04-07 13:35] LABS: CREATININE 1.2 mg/dL (0.5-1.0); GLOMERULAR FILTR. RATE CALC 57.0 mL/min (>90); GLUCOSE,RANDOM 114.0 mg/dL (70-105); SODIUM SERUM 134.0 mmol/L (136-145); UREA NITROGEN, BLOOD 3.0 mg/dL (7-18)
[2025-04-07 13:55] LABS: SARS-CoV-2, RNA, NAAT NEGATIVE SARS CoV-2 (NEGATIVE)
[2025-04-07] MEDS: 0.9%NACL 1000ML 2,178 ML IV STA (14:00)
[2025-04-07 14:01] LABS: INFLUENZA TYPE A Negative For Type A (NEGATIVE); INFLUENZA TYPE B Negative For Type B (NEGATIVE)
[2025-04-07] MEDS: ZOSYN 3.375GM +NS 50ML IVPB STA (14:37)
[2025-04-07 14:53] LABS: APPEARANCE,URINE TURBID (CLEAR); GLUCOSE, URINE (UA) NEGATIVE (NEGATIVE); LEUKOCYTE ESTERASE ,URINE NEGATIVE Leu/uL (NEGATIVE); NITRATE,URINE NEGATIVE (NEGATIVE); OCCULT BLOOD,URINE SMALL (NEGATIVE)
[2025-04-07 14:54] LABS: ADD UA MICROSCOPIC YES
[2025-04-07 15:00] LABS: SQUAMOUS EPITHELIAL CELL,UR MANY /HPF (0-2)
--- NOTE | 2025-04-07 15:02 | HMCIMG ---
CLINICAL INFORMATION Cough COMPARISON None. TECHNIQUE Frontal view chest. FINDINGS Lines and tubes: None Lungs: Clear. Pleura: Unremarkable. No effusion or pneumothorax. Cardiomediastinal Silhouette: Unremarkable. Bones: Normal for age. Soft Tissues: Normal. IMPRESSION No acute cardiopulmonary findings. /[place]
[2025-04-07 15:36] LABS: ASPARTATE AMINOTRANSFERASE 29.0 U/L (10-37); TOTAL PROTEIN, SERUM 8.3 g/dL (6.0-8.3)
--- NOTE | 2025-04-07 17:34 | HMCIMG ---
CLINICAL INFORMATION Abdominal pain, sepsis COMPARISON None. TECHNIQUE Volumetric helical CT images of the abdomen and pelvis without contrast FINDINGS Liver: Normal. Gallbladder: Surgically absent Biliary System: Non-dilated. Pancreas: Normal. Spleen: Normal. Adrenals: Normal. Kidneys: Normal bilaterally. Ureters: Normal. Bladder: Normal. Pelvis: No pelvic masses. No abnormal pelvic fluid. Stomach: Normal. Duodenum: Normal. Small Bowel: Normal. Colon: Normal. Appendix: Normal. Lymph Nodes: No lymphadenopathy. Peritoneum: No ascites or free air. Retroperitoneum: Normal. Vessels: Normal. Abdominal Wall: Normal. Bones: Normal. Lung Bases: Normal. Inferior Mediastinum: Normal. IMPRESSION No acute intra-abdominal findings. /[place]
--- NOTE | 2025-04-07 18:48 | ERN ---
ED Note History of Present Illness Stated Complaint: NAUSEA, FEVER, BODYACHES Chief Complaint: Fever Time Seen by MD: 13:15 Time Seen by Midlevel: 13:20 Dictation: 44-year-old female with no past medical history surgical history of cholecystectomy coming in with the complaints of fever abdominal pain, nausea vomiting, cough congestion onset as night. According to the patient she was here couple weeks ago for with the mom for COVID. Allergies: Coded Allergies: No Known Allergies (Verified Allergy, Unknown, 02/21/15) Uncoded Allergies: NKDA (Allergy, Unknown, 10/11/14) Home Meds Active Scripts Hydrocortisone (Hydrocortisone) 20 Mg Tablet, 1 TAB PO BID for 5 Days, #10 TAB 0 Refills Complete this dose before changing to 10mg twice daily Prov:HELEN BOWMAN MD 08/25/24 Hydrocortisone (Hydrocortisone) 10 Mg Tablet, 1 TAB PO BID for 30 Days, #60 TAB 0 Refills Prov:HELEN BOWMAN MD 08/25/24 Cephalexin Monohydrate (Keflex) 500 Mg Cap, 1 CAP PO BID for 7 Days, #14 CAP 0 Refills Prov:HELEN BOWMAN MD 08/25/24 Atorvastatin Calcium (LIPITOR) 40 Mg Tablet, 40 MG PO HS, #30 TAB 0 Refills Prov:HELEN BOWMAN MD 08/25/24 Aspirin (ASPIRIN 81 MG ECTAB) 81 Mg Ectab, 81 MG PO DAILY, #30 TAB.EC 0 Refills Prov:HELEN BOWMAN MD 08/25/24 Reported Medications Ergocalciferol (Vitamin D2) (Vitamin D2) 1,250 Mcg (64195 Unit) Capsule, 1250 MCG PO DAILY, CAP 08/22/24 Levothyroxine Sodium (Levothyroxine Sodium) 100 Mcg Tablet, 100 MCG PO ACBKFST, TAB 08/22/24 Past Medical History Past Medical History: Hypothyroid Additional Past Medical Hx: THYROID PROBLEM Surgical History: Cholecystectomy Family History: HTN Social History: ETOH, Lives with family History: Not Applicable Review of System Dictation Constitutional: ED for fever chills and body aches Eyes: Negative for injury, pain,redness, and discharge ENT: Negative for injury,pain or swelling Cardiovascular: Negative for chest pain, palpitations, and edema Respiratory: Negative for shortness of breath, cough, and wheezing, Abdomen/GI: Abdominal pain, nausea vomiting Back: Negative for injury and pain : Negative for injury, bleeding and discharge MS/Extremity: Negative for injury and deformity Skin: Negative for rash, and discoloration Neuro: Negative for headache, weakness, numbness, tingling, and seizure Psych: Negative for suicide ideation, homicidal ideation, and hallucinations Review of Systems: was completed Initial Vital Sign VS Vital Signs Date Time Temp Pulse Resp B/P (MAP) Pulse Ox O2 Delivery O2 Flow Rate FiO2 04/07/25 13:11 103.8 124 20 109/68 97 Room Air 0 04/07/25 15:41 21 Physical Exam Dictation General: awake, alert, NAD Head/Face: Normocephalic, atraumatic Eyes: PERRL, EOMI, vision at baseline ENT: oral cavity clear, TMs clear, no signs of infection Neck: Trachea midline, supple, no nuchal rigidity Cardiovascular: RRR, normal S1/S2, No MRGs, no JVD Respiratory: CTAB, no respiratory distress, No rales or wheezes Abdomen: Soft, non-tender, non-distended, normal bowel sounds, no guarding or rebound. Skin: Warm, dry, normal turgor, no rash MS/Extremity: Pulses equal, no cyanosis, neurovascular intact, FROM Neuro: COAx4, GCS 15, strength 5/5, CN 2-12 intact, normal cerebellar exam, normal gait, Psych: Normal behavior, mood, and affect normal Results (Laboratory/Radiology) Laboratory/Radiology Laboratory Tests Test 04/07/25 13:17 04/07/25 13:35 White Blood Count 19.1 K/uL (4.8-10.8) H Red Blood Count 4.83 MIL/uL (4.00-5.50) Hemoglobin 14.1 g/dL (12.0-16.0) Hematocrit 41.7 % (36-48) Mean Corpuscular Volume 86.3 fL (79-99) Mean Corpuscular Hemoglobin 29.2 pg (27.0-33.0) Mean Corpuscular Hemoglobin Concent 33.8 g/dL (32.0-36.0) Red Cell Distribution Width 13.6 % (11.0-15.5) Platelet Count 415 K/uL (130-400) H Mean Platelet Volume 9.8 fL (7.5-10.5) Immature Granulocyte % (Auto) 0.7 % (0-1) Neutrophils (%) (Auto) 71.5 % (40.0-77.0) Lymphocytes (%) (Auto) 14.8 % (21.0-51.0) L Monocytes (%) (Auto) 11.2 % (3.0-13.0) Eosinophils (%) (Auto) 1.3 % (0.0-8.0) Basophils (%) (Auto) 0.5 % (0.0-5.0) Neutrophils # (Auto) 13.6 K/uL (1.8-7.7) H Lymphocytes # (Auto) 2.8 K/uL (1.0-4.8) Monocytes # (Auto) 2.1 K/uL (0.1-1.0) H Eosinophils # (Auto) 0.24 K/uL (0.00-0.70) Basophils # (Auto) 0.10 K/uL (0.00-0.20) Absolute Immature Granulocyte (auto 0.14 K/uL (0-1) Nucleated Red Blood Cells 0.0 % (0.0-0.19) Sodium Level 134 mmol/L (136-145) L Potassium Level 3.0 mmol/L (3.5-5.1) *L Chloride Level 98 mmol/L (101-111) L Carbon Dioxide Level 24 mmol/L (21-32) Blood Urea Nitrogen 3 mg/dL (7-18) L Creatinine 1.2 mg/dL (0.5-1.0) H Glomerular Filtration Rate Calc 57 mL/min (>90) Random Glucose 114 mg/dL (70-105) H Lactic Acid Level 3.2 mmol/L (0.8-2.5) H Total Calcium 9.5 mg/dL (8.5-10.1) Total Bilirubin 0.9 mg/dL (0.2-1.0) Direct Bilirubin 0.2 mg/dL (0.0-0.3) Aspartate Amino Transf (AST/SGOT) 29 U/L (10-37) Alanine Aminotransferase (ALT/SGPT) 42 U/L (12-78) Alkaline Phosphatase 123 U/L (50-136) Total Protein 8.3 g/dL (6.0-8.3) Albumin 3.6 g/dL (3.5-5.0) Lipase 29 U/L (16-77) Urine Color YELLOW (YELLOW) Urine Appearance TURBID (CLEAR) Urine pH 7.0 (5.0-8.0) Urine Specific [place] 1.021 (1.001-1.031) Urine Protein 50 mg/dL (NEGATIVE) H Urine Glucose (UA) NEGATIVE mg/dL (NEGATIVE) Urine Ketones NEGATIVE mg/dL (NEGATIVE) Urine Occult Blood SMALL (NEGATIVE) H Urine Nitrate NEGATIVE (NEGATIVE) Urine Bilirubin NEGATIVE mg/dL (NEGATIVE) Urine Urobilinogen 4.0 mg/dL (0.2-1.0) H Urine Leukocyte Esterase NEGATIVE Roman/uL Urine RBC 2-5 /HPF (0-1) H Urine WBC 11-25 /HPF (0-1) H Urine Squamous Epithelial Cells MANY /HPF (0-2) Urine Bacteria FEW /HPF (None Seen) Influenza Type A Antigen Negative For Type A Influenza Type B Antigen Negative For Type B SARS-CoV-2, RNA, NAAT NEGATIVE SARS CoV-2 Group A Streptococcus Rapid negative (NEGATIVE) Labs Reviewed?: Yes X-RAY Comment: [place] [id number] [id number] IMAGING REPORT Signed PATIENT: KWASI FARRIS MR#: [id number] : 1980 SEX: F AGE: 44 LOCATION: [facility] ORDER 1320 STATUS: REG REPORT#: [id number] SERVICE 1318 REASON: cough ORDERING PHYSICIAN: MIHIR TERRAZAS NP PROCEDURE: CXR1VW - CHEST 1VW CLINICAL INFORMATION Cough COMPARISON None. TECHNIQUE Frontal view chest. FINDINGS Lines and tubes: None Lungs: Clear. Pleura: Unremarkable. No effusion or pneumothorax. Cardiomediastinal Silhouette: Unremarkable. Bones: Normal for age. Soft Tissues: Normal. IMPRESSION No acute cardiopulmonary findings. /[place] DICTATED BY: ALEC AYALA MD DATE: 04/07/25 1602 ELECTRONICALLY SIGNED BY: ALEC AYALA MD DATE: 04/07/[address] Scan Comment: [place] [id number] [place] [id number] IMAGING REPORT Signed PATIENT: KWASI FARRIS MR#: [id number] : 1980 SEX: F AGE: 44 LOCATION: [facility] ORDER 1420 STATUS: REG ER REPORT#: [id number] SERVICE 1419 REASON: sepsis, abdominal pain ORDERING PHYSICIAN: MIHIR TERRAZAS NP PROCEDURE: ABD PEL WO - CT ABDOMEN/PELVIS W/O CONTRAST CLINICAL INFORMATION Abdominal pain, sepsis COMPARISON None. TECHNIQUE Volumetric helical CT images of the abdomen and pelvis without contrast FINDINGS Liver: Normal. Gallbladder: Surgically absent Biliary System: Non-dilated. Pancreas: Normal. Spleen: Normal. Adrenals: Normal. Kidneys: Normal bilaterally. Ureters: Normal. Bladder: Normal. Pelvis: No pelvic masses. No abnormal pelvic fluid. Stomach: Normal. Duodenum: Normal. Small Bowel: Normal. Colon: Normal. Appendix: Normal. Lymph Nodes: No lymphadenopathy. Peritoneum: No ascites or free air. Retroperitoneum: Normal. Vessels: Normal. Abdominal Wall: Normal. Bones: Normal. Lung Bases: Normal. Inferior Mediastinum: Normal. IMPRESSION No acute intra-abdominal findings. /[place] DICTATED BY: ALEC AYALA MD DATE: 04/07/251833 ELECTRONICALLY SIGNED BY: ALEC AYALA MD DATE: 04/07/251833 ED Course ED Course Orders Procedure Category Date Status Time Cbc With Differential LAB 04/07/25 Complete 13:18 Basic Metabolic Panel LAB 04/07/25 Complete 13:18 Lactic Acid LAB 04/07/25 Complete 13:18 Blood Cult ANGELICA 04/07/25 In Process 13:18 Covid Rna Naat LAB 04/07/25 Complete 13:18 Influenza Type A & B, LAB 04/07/25 Complete Rapid 13:18 Chest 1vw RAD 04/07/25 Resulted 13:18 0.9%Nacl 1000ml (Ns PHA 04/07/25 Complete 1000ml) 13:18 Acetaminophen 325 Tab PHA 04/07/25 Complete (Tylenol 325mg Tab 13:18 Rapid (Group A Strep) LAB 04/07/25 Complete 13:30 Potassium Bicarb/Cit PHA 04/07/25 Complete Ac 25meq (K-Lyte Ta 13:38 Urinalysis Profile LAB 04/07/25 Complete 14:19 Ct Abdomen/Pelvis W/O CT 04/07/25 Resulted Contrast 14:19 Zosyn 3.375gm+Ns 50ml PHA 04/07/25 Complete (Zosyn 3.375gm+Ns 14:20 Culture Urine ANGELICA 04/07/25 In Process 15:04 Lipase LAB 04/07/25 Complete 15:12 Hepatic Function Panel LAB 04/07/25 Complete 15:12 Lactic Acid (Removed) LAB 04/07/25 Logged 16:28 Current Medications Medications (Trade) Dose Ordered Sig/Carmelo Route PRN Reason Start Time Stop Time Status Last Admin Dose Admin Acetaminophen (TYLenol 325MG TAB) 650 mg ONCE STAT PO 04/07/25 13:18 04/07/25 13:22 DC 04/07/25 14:00 Piperacillin Sod/ Tazobactam Sod (Zosyn 3.375gm+NS 50ml) 3.375 gm ONCE STAT IVPB 04/07/25 14:20 04/07/25 14:24 DC 04/07/25 14:37 Potassium Bicarbonate (K-Lyte Tablet Eff 25 Meq Tablet.eff) 50 meq ONCE STAT PO 04/07/25 13:38 04/07/25 13:41 DC 04/07/25 13:58 Sodium Chloride 2,178 ml @ 726 mls/hr ONCE STAT IV 04/07/25 13:18 04/07/25 16:17 DC 04/07/25 14:00 Vital Signs Date Time Temp Pulse Resp B/P (MAP) Pulse Ox O2 Delivery O2 Flow Rate FiO2 04/07/25 15:41 99.9 100 18 110/65 97 Room Air* 0 21 04/07/25 14:00 103.8 04/07/25 13:11 103.8 124 20 109/68 97 Room Air 0 Medical Decision Making MDM MDM: 44-year-old female with no past medical history surgical history of ch olecystectomy coming in with the complaints of fever abdominal pain, nausea vomiting, cough congestion onset as night. According to the patient she was here couple weeks ago for with [place] [address], no anemia, thrombocythemia. Chemistry shows hyponatremia at 134., potassium is three, elevated BUN and creatinine could be related to dehydration. Lactic level of 3.2. No transaminitis. Lipase within normal range. Swabs are negative for COVID and flu. Chest x-ray is normal. CT scan of the abdomen and also shows no acute findings. Patient will be admitted for sepsis unknown etiology. Patient received fluids antibiotics in the emergency room and replacement for potassium. Spoke to Samantha WEST for hospitalist group. Okay to admit. Differential diagnosis: Sepsis, urosepsis, COVID, flu, viral syndrome Rationale: Tests considered and ordered secondary to shared decision making include: labs, ECG and radiology Previous outside records reviewed: Old ER visits. Risk of complication and/or morbidity or mortality of patient management: None Medications-Per medication reconciliation Need for hospitalization: Patient does meet criteria for hospitalization. Need for emergency major/minor surgery: No There are no social concerns with this patient. Prescription drug management Prescriptions will include symptomatic care Patient's prior external medical records from other ER visits were reviewed by me as indicated. Prior testing and results from previous visits were reviewed. Prior tests were taken into account with medical decision making and resource utilization, independent historian/historians were used to obtain complete medical history. I independently interpreted the test that were performed, results were reviewed by me and considered findings on radiology if ordered. Medical management and examination interpretation discussions were had by me with other qualified healthcare professionals as indicated for the patient's care. DX & DISP Disposition: Inpatient Decision to Admit Date: Apr 07, 2025 Decision to Admit Time: 18:47 Departure Impression: Primary Impression: Severe sepsis with septic shock Additional Impressions: Hypokalemia, Dehydration, RACHEL (acute kidney injury) Condition: Stable Referrals: DARELL CHACON MD (PCP) Time of Disposition: 18:47 I have reviewed the case, and I agree with, Diagnosis and Plan MIHIR TERRAZAS NP Apr 07, 2025 18:48
--- NOTE | 2025-04-07 19:01 | NUR ---
HOSPITALIST AT BEDSIDE
--- NOTE | 2025-04-07 19:19 | HP ---
[facility] HISTORY AND PHYSICAL Date of Service: Apr 07, 2025 Time of Service: 19:19 PCP: Dr.Padmini Luu HISTORY OF PRESENT ILLNESS: This is a 44-year-old female with past medical history of hypothyroidism ,adrenal insufficiency, vitiligo and renal insufficiency who presents to the ED for complaints of fever, nausea, vomiting and runny nose which started today.As per patient she was accompanied her mom here a week ago who was seek and had Covid she said and yesterday she started sneezing and having runny nose and today she woke up feeling sick and was throwing up x 3 and she is unable to keep anything down she decided to get medical help before it is too late she said.Patient reports symptoms was very sudden and abrupt and she feels having chills but did not check her temperature.Patient denies chest pain,palpitation,shortness of breath and diarrhea. Upon arrival to ER temperature was 103.8, blood pressure 109/68, heart rate 124 saturation 97% on room air. WBC 19, hemoglobin 14, hematocrit 41, platelet count 415. Sodium 134, potassium 3.0, chloride 98, BUN three, creatinine 1.2, GFR 57, glucose 114, lactic acid 3.2-1.2 rest of the chemistries are normal. Urinalysis consistent with urinary tract infection. Serology negative for influenza type a and B, SARs COVID negative group a strep negative. CT abdomen and pelvis without contrast result revealed no acute intra-abdominal findings. Chest x-ray result revealed no acute cardiopulmonary findings. While in the ER patient received fluid resuscitation of NS at 30 mL/kilogram over 3 hours, Tylenol 650 mg p.o., potassium replacement 50 mEq p.o. and Zosyn IV. We will admit patient for fur ther medical management. REVIEW OF SYSTEMS CONSTITUTIONAL: + Chills and fever Denies night sweats. No unintentional weight loss reported. NEUROLOGICAL: Denies headache, amaurosis fugax, sensory deficit, vertigo/spinning sensation, gait abnormalities, or tremors. ENT: No hearing loss, otalgia, otorrhea, rhinitis, rhinorrhea, hoarseness, or sore throat. CARDIOVASCULAR: Denies any exertional angina, dyspnea on exertion, orthopnea, paroxysmal nocturnal dyspnea, palpitations, life-threatening arrhythmias, claudication. PULMONARY:+runny nose Denies any shortness of breath, phlegm/sputum, hemoptysis, pleuritic chest pain. SLEEP: Denies morning headaches, daytime somnolence or napping. Denies difficulty falling asleep, staying asleep, waking from sleep. Denies knowledge of snoring. GASTROINTESTINAL: + nausea and vomiting Denies any type of dysphagia to either liquids or solids. Denies pyrosis, early satiety, abdominal pain, diarrhea, constipation, or changes in stool consistency or caliber. Denies coffee-ground emesis, hematemesis, hematochezia, or melanotic stools. GENITOURINARY: Denies frequency, urgency, nocturia, hematuria or incontinence (Storage/Irritative symptoms.) Low urinary stream, straining to void, urinary intermittency or hesitancy, splitting of the voiding stream, terminal dribbling. ENDOCRINOLOGIC: Denies polyuria, polydipsia, polyphagia or heat/cold intolerances. HEMATOLOGIC: Denies thrombophilia/previous clots, or coagulopathy/bleeding disorders. ONCOLOGIC: Denies personal history of malignancy. DERMATOLOGIC: Denies rashes or pruritus. PSYCHIATRIC: Denies any suicidal or homicidal ideation. Denies hallucinations. PAST MEDICAL HISTORY: [Vitiligo,Hypothyroidism and adrenal insufficiency ] PAST SURGICAL HISTORY: [Cholecystectomy ] PAST SOCIAL HISTORY: [ Patient denies alcohol,cigarette and recreational drug use.Patient states she lives with her family ] FAMILY HISTORY: [ Noncontributory ] Coded Allergies: No Known Allergies (Verified Allergy, Unknown, 02/21/15) Uncoded Allergies: NKDA (Allergy, Unknown, 10/11/14) PHYSICAL EXAM GENERAL APPEARANCE: The patient is awake, alert, and oriented, in no acute cardiopulmonary distress. NEUROLOGICAL: Cranial nerves II-XII grossly intact. Motor is 5/5 in bilateral upper and lower extremities proximal to distal. No sensory deficits. HEENT: Face is symmetric. Pupils are equal and reactive. Extraocular movements are intact. NECK: Supple. No JVD. No thyromegaly. No submental, submandibular, pre- /postauricular, occipital or supraclavicular lymphadenopathy. CHEST: Normal chest expansion. No Telemetry. LUNGS: Absence of any rales, rhonchi or any wheezing. CARDIOVASCULAR: Regular. S1 and S2 normal. No appreciable rubs, murmurs or gallops. ABDOMEN: Soft, nontender, and nondistended. There is no rebound, voluntary guarding, or rigidity. : Deferred. No Gutierrez. EXTREMITIES: Non-edematous and not cyanotic. No clubbing. Good capillary refill. SKIN: No skin breakdown. Vital Sign (Last 24 Hours) 04/07/25 18:53 Temp 98.6 Pulse 115 Resp 18 B/P (MAP) 105/68 Pulse Ox 97 O2 Delivery Room Air* O2 Flow Rate 0 FiO2 21 LABS: Laboratory: Test 04/07/25 13:35 04/07/25 13:17 Range/Units Urine Color YELLOW YELLOW Urine Appearance TURBID CLEAR Urine pH 7.0 5.0-8.0 Urine Specific [place] 1.021 1.001-1.031 Urine Protein 50 H NEGATIVE mg/dL Urine Glucose (UA) NEGATIVE NEGATIVE mg/dL Urine Ketones NEGATIVE NEGATIVE mg/dL Urine Occult Blood SMALL H NEGATIVE Urine Nitrate NEGATIVE NEGATIVE Urine Bilirubin NEGATIVE NEGATIVE mg/dL Urine Urobilinogen 4.0 H 0.2-1.0 mg/dL Urine Leukocyte Esterase NEGATIVE NEGATIVE Roman/uL Urine RBC 2-5 H 0-1 /HPF Urine WBC 11-25 H 0-1 /HPF Urine Squamous Epithelial Cells MANY 0-2 /HPF Urine Bacteria FEW None Seen /HPF Influenza Type A Antigen Negative For Type A NEGATIVE Influenza Type B Antigen Negative For Type B NEGATIVE SARS-CoV-2, RNA, NAAT NEGATIVE SARS CoV-2 NEGATIVE Group A Streptococcus Rapid negative NEGATIVE White Blood Count 19.1 H 4.8-10.8 K/uL Red Blood Count 4.83 4.00-5.50 MIL/uL Hemoglobin 14.1 12.0-16.0 g/dL Hematocrit 41.7 36-48 % Mean Corpuscular Volume 86.3 79-99 fL Mean Corpuscular Hemoglobin 29.2 27.0-33.0 pg Mean Corpuscular Hemoglobin Concent 33.8 32.0-36.0 g/dL Red Cell Distribution Width 13.6 11.0-15.5 % Platelet Count 415 H 130-400 K/uL Mean Platelet Volume 9.8 7.5-10.5 fL Immature Granulocyte % (Auto) 0.7 0-1 % Neutrophils (%) (Auto) 71.5 40.0-77.0 % Lymphocytes (%) (Auto) 14.8 L 21.0-51.0 % Monocytes (%) (Auto) 11.2 3.0-13.0 % Eosinophils (%) (Auto) 1.3 0.0-8.0 % Basophils (%) (Auto) 0.5 0.0-5.0 % Neutrophils # (Auto) 13.6 H 1.8-7.7 K/uL Lymphocytes # (Auto) 2.8 1.0-4.8 K/uL Monocytes # (Auto) 2.1 H 0.1-1.0 K/uL Eosinophils # (Auto) 0.24 0.00-0.70 K/uL Basophils # (Auto) 0.10 0.00-0.20 K/uL Absolute Immature Granulocyte (auto 0.14 0-1 K/uL Nucleated Red Blood Cells 0.0 0.0-0.19 % Sodium Level 134 L 136-145 mmol/L Potassium Level 3.0 *L 3.5-5.1 mmol/L Chloride Level 98 L 101-111 mmol/L Carbon Dioxide Level 24 21-32 mmol/L Blood Urea Nitrogen 3 L 7-18 mg/dL Creatinine 1.2 H 0.5-1.0 mg/dL Glomerular Filtration Rate Calc 57 >90 mL/min Random Glucose 114 H 70-105 mg/dL Lactic Acid Level 3.2 H 0.8-2.5 mmol/L Total Calcium 9.5 8.5-10.1 mg/dL Total Bilirubin 0.9 0.2-1.0 mg/dL Direct Bilirubin 0.2 0.0-0.3 mg/dL Aspartate Amino Transf (AST/SGOT) 29 10-37 U/L Alanine Aminotransferase (ALT/SGPT) 42 12-78 U/L Alkaline Phosphatase 123 50-136 U/L Total Protein 8.3 6.0-8.3 g/dL Albumin 3.6 3.5-5.0 g/dL Lipase 29 16-77 U/L Current Medications Medications (Trade) Dose Ordered Sig/Carmelo Route PRN Reason Start Time Stop Time Status Last Admin Dose Admin Acetaminophen (TYLenol 325MG TAB) 650 mg ONCE STAT PO 04/07/25 13:18 04/07/25 13:22 DC 04/07/25 14:00 650 MG Piperacillin Sod/ Tazobactam Sod (Zosyn 3.375gm+NS 50ml) 3.375 gm ONCE STAT IVPB 04/07/25 14:20 04/07/25 14:24 DC 04/07/25 14:37 3.375 GM Potassium Bicarbonate (K-Lyte Tablet Eff 25 Meq Tablet.eff) 50 meq ONCE STAT PO 04/07/25 13:38 04/07/25 13:41 DC 04/07/25 13:58 50 MEQ Sodium Chloride 2,178 ml @ 726 mls/hr ONCE STAT IV 04/07/25 13:18 04/07/25 16:17 DC 04/07/25 14:00 726 MLS/HR DIAGNOSTICS / RADIOLOGY: [ ] ASSESSMENT: Dehydration POA Acute kidney injury POA Hypokalemia POA Suspected urinary tract infection POA Sepsis POA Acute leukocytosis POA PLAN: We will admit patient in medical surgical with telemetry We will start on GI soft diet We will start NS @ 100 ml / hr x2 bags and re evaluate We will continue Zosyn IV renal dose We will start on famotidine 20 mg p.o. daily GI prophylaxis We will replace electrolytes as needed per protocol We will add prn medication for fever,pain,cough , nausea and vomiting We will reconcile home meds once medlist available We will request labs in am Follow-up urine culture result Further orders to follow depending on above results Case discussed with attending physician and came up with above treatment and plan of care. ADVANCED CARE PLANNING 1. Which of the following were discussed? Hospice Care - No Therapeutic options - Yes Advance Directives - No Other discussions - 2. Discussed with who? Patient 3. Voluntary nature of this service was explained to the patient? Yes 4. Amount of time spent - ___22 min____ 5. Reviewed by Physician? (if this service was performed by NPP) Yes Patient seen and examined by me. Agree with note by BUSINESS BANKING REPRESENTATIVE SEE ADDITIONAL ORDERS PER CHART DISCUSSED WITH NURSING STAFF MARITZA RIVERA CAR DETAILER Apr 07, 2025 19:19
[2025-04-07] MEDS ORDERED: PoTASSium chl 10% ELIXIR 20MEQ 20 MEQ/15 ML UDCUP PO PRN (19:30)
[2025-04-07] MEDS: 0.9%NACL 1000ML 1,000 ML IV SCH (19:32)
[2025-04-07] MEDS: ZOSYN 3.375GM+NS 50ML 50 ML IV SCH (23:08)
[2025-04-07] MEDS: FAMOTIDINE 20MG TAB PO SCH (23:09)
[2025-04-08 06:54] LABS: IMMATURE GRANULOCYTE ABSOLUTE 0.09 K/uL (0-1); NUCLEATED RED BLOOD CELLS 0.0 % (0.0-0.19); PLATELET COUNT (AUTO) 370 K/uL (130-400); RED BLOOD CELL COUNT(AUTO) 4.18 MIL/uL (4.00-5.50); RED CELL DISTRIBUTION WIDTH 14.1 % (11.0-15.5); WHITE BLOOD COUNT (AUTO) 13.6 K/uL (4.8-10.8)
[2025-04-08 07:07] LABS: ASPARTATE AMINOTRANSFERASE 27.0 U/L (10-37); CREATINE KINASE, TOTAL 50.0 U/L (21-232); CREATININE 1.0 mg/dL (0.5-1.0); GLOMERULAR FILTR. RATE CALC 71.0 mL/min (>90); GLUCOSE,RANDOM 94.0 mg/dL (70-105); SODIUM SERUM 131.0 mmol/L (136-145); TOTAL PROTEIN, SERUM 6.6 g/dL (6.0-8.3); UREA NITROGEN, BLOOD 3.0 mg/dL (7-18)
[2025-04-08] MEDS ORDERED: MAGNESIUM 2GM PREMIX 50ML 50 ML IV PRN (09:00)
--- NOTE | 2025-04-08 13:07 | PN ---
[facility] PROGRESS NOTE Date of Service: Apr 08, 2025 Time of Service: 13:07 SUBJECTIVE: This is a case of a 44-year-old female with past medical history of hypothyroidism, adrenal insufficiency, vitiligo, renal insufficiency who presented to the ED with the complaints of sudden onset of nausea, vomiting [watery, 3 episodes], fever since yesterday night. She mentions eating canned soup day before yesterday and doesn't recall eating anything out of ordinary other than that.. She also mentions about experiencing nasal congestion, sneezes. She states that she has similar episodes in the past. Initial vitals Temp 103.8, blood pressure 109/68, heart rate 124 saturation 97% on room air. Labs WBC 19, potassium 3.0, chloride 98, creatinine 1.2 [baseline 0.8], lactic acid 3.2. COVID, influenza, strep test results are negative. CT abdomen and pelvis without contrast result revealed no acute intra-abdominal findings. Chest x-ray result revealed no acute cardiopulmonary findings. She is admitted for further workup and management in view of sepsis, hypokalemia, RACHEL. Today the patient is seen and examined at the bedside. Vitals blood pressure ranging in 90s to 100s/60s, SpO2 saturating greater than 95%. She states that she feels well and her nausea, vomiting symptoms have completely resolved. She denies fever, chills, chest pain, palpitations, abdominal pain, constipation/diarrhea, weakness in Bilateral upper and lower extremities, burning sensation while urinating. Labs WBC improved from 19.1-13.6, hemoglobin 12.4, sodium 131, potassium 3, magnesium 1.4, total bilirubin 1.3. Lipase, TCK, procalcitonin, LFT results are within normal limits. Lactic acid improved from 3.2-1. Pending blood culture results. REVIEW OF SYSTEMS CONSTITUTIONAL: Denies night sweats. No unintentional weight loss reported. NEUROLOGICAL: Denies headache, sensory deficit, vertigo/spinning sensation, gait abnormalities, or tremors. ENT: No hearing loss, otalgia, admits to rhinorrhea, hoarseness, or sore throat. CARDIOVASCULAR: Denies any exertional angina, dyspnea on exertion, orthopnea, paroxysmal nocturnal dyspnea, palpitations, life-threatening arrhythmias, claudication. PULMONARY:+runny nose Denies any shortness of breath, phlegm/sputum, hemoptysis, pleuritic chest pain. SLEEP: Denies morning headaches, daytime somnolence or napping GASTROINTESTINAL: Denies any type of dysphagia to either liquids or solids. Denies abdominal pain, diarrhea, constipation, or changes in stool consistency or caliber, hematemesis, hematochezia, or melanotic stools. GENITOURINARY: Denies frequency, urgency, nocturia, hematuria or incontinence ENDOCRINOLOGIC: Denies polyuria, polydipsia, polyphagia or heat/cold intolerances. ONCOLOGIC: Denies personal history of malignancy. DERMATOLOGIC: Denies rashes or pruritus. PSYCHIATRIC: Denies any suicidal or homicidal ideation. Denies hallucinations. PHYSICAL EXAM GENERAL APPEARANCE: The patient is awake, alert, and oriented, in no acute cardiopulmonary distress. NEUROLOGICAL: Cranial nerves II-XII grossly intact. Motor is 5/5 in bilateral upper and lower extremities proximal to distal. No sensory deficits. HEENT: Face is symmetric. Pupils are equal and reactive. Extraocular movements are intact. NECK: Supple. No JVD CHEST: Normal chest expansion. No Telemetry. LUNGS: Absence of any rales, rhonchi or any wheezing. CARDIOVASCULAR: Regular. S1 and S2 normal ABDOMEN: Soft, nontender, and nondistended. There is no rebound, voluntary guarding, or rigidity. : Deferred. No Gutierrez. EXTREMITIES: Non-edematous and not cyanotic. No clubbing. Good capillary refill. SKIN: No skin breakdown. Vital Signs (last 8hr) Date Time Temp Pulse Resp B/P (MAP) Pulse Ox O2 Delivery O2 Flow Rate FiO2 04/08/25 10:54 98.6 88 17 99/61 97 Room Air* 0 21 04/08/25 05:13 98.6 99 17 111/66 96 Room Air* 0 21 LABS: Laboratory: Test 04/08/25 06:43 04/07/25 13:35 04/07/25 13:17 Range/Units White Blood Count 13.6 #H 4.8-10.8 K/uL Red Blood Count 4.18 4.00-5.50 MIL/uL Hemoglobin 12.4 12.0-16.0 g/dL Hematocrit 36.1 36-48 % Mean Corpuscular Volume 86.4 79-99 fL Mean Corpuscular Hemoglobin 29.7 27.0-33.0 pg Mean Corpuscular Hemoglobin Concent 34.3 32.0-36.0 g/dL Red Cell Distribution Width 14.1 11.0-15.5 % Platelet Count 370 130-400 K/uL Mean Platelet Volume 10.3 7.5-10.5 fL Immature Granulocyte % (Auto) 0.7 0-1 % Neutrophils (%) (Auto) 48.4 40.0-77.0 % Lymphocytes (%) (Auto) 28.5 21.0-51.0 % Monocytes (%) (Auto) 19.2 H 3.0-13.0 % Eosinophils (%) (Auto) 2.4 0.0-8.0 % Basophils (%) (Auto) 0.8 0.0-5.0 % Neutrophils # (Auto) 6.6 1.8-7.7 K/uL Lymphocytes # (Auto) 3.9 1.0-4.8 K/uL Monocytes # (Auto) 2.6 H 0.1-1.0 K/uL Eosinophils # (Auto) 0.32 0.00-0.70 K/uL Basophils # (Auto) 0.11 0.00-0.20 K/uL Absolute Immature Granulocyte (auto 0.09 0-1 K/uL Nucleated Red Blood Cells 0.0 0.0-0.19 % White Cell Morphology Comment See comments Sodium Level 131 L 136-145 mmol/L Potassium Level 3.0 *L 3.5-5.1 mmol/L Chloride Level 99 L 101-111 mmol/L Carbon Dioxide Level 23 21-32 mmol/L Blood Urea Nitrogen 3 L 7-18 mg/dL Creatinine 1.0 0.5-1.0 mg/dL Glomerular Filtration Rate Calc 71 >90 mL/min Random Glucose 94 70-105 mg/dL Lactic Acid Level 1.0 0.8-2.5 mmol/L Total Calcium 8.1 L 8.5-10.1 mg/dL Magnesium Level 1.40 L 1.80-2.40 mg/dL Total Bilirubin 1.3 #H 0.2-1.0 mg/dL Aspartate Amino Transf (AST/SGOT) 27 10-37 U/L Alanine Aminotransferase (ALT/SGPT) 27 # 12-78 U/L Alkaline Phosphatase 88 # 50-136 U/L Total Creatine Kinase 50 # 21-232 U/L Total Protein 6.6 # 6.0-8.3 g/dL Albumin 2.8 #L 3.5-5.0 g/dL Procalcitonin 0.23 0.05-0.5 ng/mL Urine Color YELLOW YELLOW Urine Appearance TURBID CLEAR Urine pH 7.0 5.0-8.0 Urine Specific [place] 1.021 1.001-1.031 Urine Protein 50 H NEGATIVE mg/dL Urine Glucose (UA) NEGATIVE NEGATIVE mg/dL Urine Ketones NEGATIVE NEGATIVE mg/dL Urine Occult Blood SMALL H NEGATIVE Urine Nitrate NEGATIVE NEGATIVE Urine Bilirubin NEGATIVE NEGATIVE mg/dL Urine Urobilinogen 4.0 H 0.2-1.0 mg/dL Urine Leukocyte Esterase NEGATIVE NEGATIVE Roman/uL Urine RBC 2-5 H 0-1 /HPF Urine WBC 11-25 H 0-1 /HPF Urine Squamous Epithelial Cells MANY 0-2 /HPF Urine Bacteria FEW None Seen /HPF Influenza Type A Antigen Negative For Type A NEGATIVE Influenza Type B Antigen Negative For Type B NEGATIVE SARS-CoV-2, RNA, NAAT NEGATIVE SARS CoV-2 NEGATIVE Group A Streptococcus Rapid negative NEGATIVE Direct Bilirubin 0.2 0.0-0.3 mg/dL Lipase 29 16-77 U/L Current Medications Medications (Trade) Dose Ordered Sig/Carmelo Route PRN Reason Start Time Stop Time Status Last Admin Dose Admin Acetaminophen (TYLenol 325MG TAB) 650 mg ONCE STAT PO 04/07/25 13:18 04/07/25 13:22 DC 04/07/25 14:00 650 MG Acetaminophen (TYLenol 325MG TAB) 650 mg Q4H PRN PO MILD PAIN (1-3) 04/07/25 19:30 05/07/25 19:29 04/08/25 04:45 650 MG Acetaminophen (TYLenol 325MG TAB) 650 mg Q6H PRN PO TEMPERATURE GREATER THAN 101.5 04/07/25 19:30 05/07/25 19:29 Famotidine (Pepcid 20mg Tab) 20 mg Q24H PO 04/07/25 21:00 05/07/25 20:59 04/07/25 23:09 20 MG Magnesium Sulfate 50 ml @ 0 mls/hr PROTOCOL PRN IV hYPOMAGNESEMIA 04/08/25 09:00 05/08/25 08:59 Ondansetron HCl (zoFRAN 4MG INJ) 4 mg Q6H PRN IV NAUSEA/VOMITING 04/07/25 19:30 05/07/25 19:29 04/08/25 03:11 4 MG Piperacillin Sod/ Tazobactam Sod 50 ml @ 12.5 mls/hr ZOSY8 IV 04/07/25 21:00 04/17/25 20:59 04/08/25 12:59 12.5 MLS/HR Piperacillin Sod/ Tazobactam Sod (Zosyn 3.375gm+NS 50ml) 3.375 gm ONCE STAT IVPB 04/07/25 14:20 04/07/25 14:24 DC 04/07/25 14:37 3.375 GM Potassium Bicarbonate (K-Lyte Tablet Eff 25 Meq Tablet.eff) 50 meq ONCE STAT PO 04/07/25 13:38 04/07/25 13:41 DC 04/07/25 13:58 50 MEQ Potassium Chloride 100 ml @ 50 mls/hr AD PRN IV POTASSIUM PROTOCOL 04/07/25 19:30 04/08/25 02:43 DC Potassium Chloride 100 ml @ 100 mls/hr AD PRN IV POTASSIUM PROTOCOL 04/07/25 19:30 05/07/25 19:29 04/07/25 19:38 100 MLS/HR Potassium Chloride (K-Dur/Klor-Con 20meq) 20 meq AD PRN PO POTASSIUM PROTOCOL 04/07/25 19:30 05/07/25 19:29 Potassium Chloride (KCl 10% Elixir 20meq/15ml) 20 meq AD PRN PO POTASSIUM PROTOCOL 04/07/25 19:30 05/07/25 19:29 Sodium Chloride 1,000 ml @ 100 mls/hr Q10H IV 04/07/25 19:30 05/07/25 19:29 04/08/25 05:16 100 MLS/HR Sodium Chloride 2,178 ml @ 726 mls/hr ONCE STAT IV 04/07/25 13:18 04/07/25 16:17 DC 04/07/25 14:00 726 MLS/HR DIAGNOSTICS / RADIOLOGY: [ ] ASSESSMENT: Sepsis POA Dehydration POA Acute kidney injury POA, resolved Hypokalemia POA Hypomagnesemia Acute leukocytosis POA Non anion gap acidosis, POA PLAN: Sepsis POA WBC improved from 19.1 to 13.6 Lactic acid improved from 3.2 to 1 Continue broad spectrum antibiotic Zosyn IV We will tailor the antibiotics based on the culture results Continue IV fluids @100ml/hr for now, monitor hemodynamic status and reduce the rate later Follow up on blood culture results Urine culture results are negative Monitor vitals Q4H Acute kidney injury POA, resolved Cr improved from 1.2 to 1 Continue IV fluids Monitor BMP Hypokalemia POA, Hypomagnesemia Mg 1.4, K 3 Continue Mg and K protocol Monitor electrolytes and replace them according to the protocol Continue GI soft diet Continue DVT prophylaxis with SCDs and GI prophylaxis with Famotidine Continue PRN meds for pain/fever/Vomiting ATTESTATION BY PHYSICIAN I have seen and examined the patient. I reviewed the documentation, medical decision making, and treatment plan as noted by the resident above. I agree with the findings and plan of care. Alejandro Luu MD, PRIYANKA MD Apr 08, 2025 13:07
--- NOTE | 2025-04-08 14:49 | NUR ---
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 Pt lives alone in her home, pt states she and aTm Francois have been 6 yrs, but are still legally . Pt states she remains able to care for self, drives, independent of all her ADLS. Uses no DME or hh or HD. PCP is Dr Luu and uses [facility] for rx. Pt denies need for SNF, wantsto return home at or. pete Tam [facility] [phone] Addendum: 04/08/25 at 1452 by MORRIS BOYD Amended: Links added.
[2025-04-08] MEDS: PoTASSium chloRIDE 20MEQ ER 20 MEQ ERTAB PO PRN (16:29)
[2025-04-08 18:48] VITALS: TEMP 99.4
[2025-04-09 06:31] LABS: IMMATURE GRANULOCYTE ABSOLUTE 0.04 K/uL (0-1); NUCLEATED RED BLOOD CELLS 0.0 % (0.0-0.19); PLATELET COUNT (AUTO) 429 K/uL (130-400); RED BLOOD CELL COUNT(AUTO) 4.73 MIL/uL (4.00-5.50); RED CELL DISTRIBUTION WIDTH 13.7 % (11.0-15.5); WHITE BLOOD COUNT (AUTO) 11.3 K/uL (4.8-10.8)
[2025-04-09 07:00] LABS: CREATININE 0.8 mg/dL (0.5-1.0); GLOMERULAR FILTR. RATE CALC 93.0 mL/min (>90); GLUCOSE,RANDOM 118.0 mg/dL (70-105); SODIUM SERUM 129.0 mmol/L (136-145); UREA NITROGEN, BLOOD 5.0 mg/dL (7-18)
[2025-04-09] MEDS: ASPIRIN 81 MG EC TAB PO SCH (10:24)
--- NOTE | 2025-04-09 13:57 | DS ---
Discharge Summary Hospital Course Summary: This is a case of a 44-year-old female with past medical history of hypothyroidism, adrenal insufficiency, vitiligo, renal insufficiency who presented to the ED with the complaints of sudden onset of nausea, vomiting [watery, 3 episodes], fever since yesterday night. She mentioned eating canned soup a day before and doesn't recall eating anything out of ordinary other than that.. She also mentions about experiencing nasal congestion, sneezes. She states that she has similar episodes in the past. Initial vitals Temp 103.8, blood pressure 109/68, heart rate 124 saturation 97% on room air. Labs WBC 19, potassium 3.0, chloride 98, creatinine 1.2 [baseline 0.8], lactic acid 3.2. COVID, influenza, strep test results are negative. CT abdomen and pelvis without contrast result revealed no acute intra-abdominal findings. Chest x-ray result revealed no acute cardiopulmonary findings. She is admitted for further workup and management in view of sepsis, hypokalemia, RCAHEL. Upon admission patient was started on broad-spectrum IV antibiotics with Zosyn and IV fluids with NS. Urine and blood cultures were sent. Her fever was controlled with acetaminophen. Patient was started on stress dose steroids with IV hydrocortisone 50 mg Q6. Patients condition has stabilized. Her white cell count of reduced since admission. Patient's lactic acid trended down to 1. Blood culture showed no growth and urine culture showed growth of lactobacillus species. As per recommended guidelines patient coming with sepsis and if found an infectious source like lactobacillus, they should be treated with beta lactams. Patient will be sent home with amoxicillin clavulanate for 10 days. Patient was advised to take Hydrocortisone 20 mg twice daily for 5 days and resume taking the 10 mg twice daily afterwards. Patient was advised to follow up with PCP in 2-3. Patient was advised to watch for red flag signs take increasing fever, nausea, vomiting, abdominal pain, and dizziness and return to ED as needed. 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 TECHNIQUE Frontal view chest. FINDINGS Lines and tubes: None Lungs: Clear. Pleura: Unremarkable. No effusion or pneumothorax. Cardiomediastinal Silhouette: Unremarkable. Bones: Normal for age. Soft Tissues: Normal. IMPRESSION No acute cardiopulmonary findings. /[place] DICTATED BY: ALEC AYALA MD DATE: 04/07/25 160 ELECTRONICALLY SIGNED BY: ALEC AYALA MD DATE: 04/07/25 160 PATIENT: KWASI FARRIS MR#: [id number] : 1980 SEX: F AGE: 44 LOCATION: [facility] ORDER 1420 STATUS: [facility] REPORT#: [id number] SERVICE 1419 REASON: sepsis, abdominal pain ORDERING PHYSICIAN: MIHIR TERRAZAS NP PROCEDURE: ABD PEL WO - CT ABDOMEN/PELVIS W/O CONTRAST CLINICAL INFORMATION Abdominal pain, sepsis COMPARISON None. TECHNIQUE Volumetric helical CT images of the abdomen and pelvis without contrast FINDINGS Liver: Normal. Gallbladder: Surgically absent Biliary System: Non-dilated. Pancreas: Normal. Spleen: Normal. Adrenals: Normal. Kidneys: Normal bilaterally. Ureters: Normal. Bladder: Normal. Pelvis: No pelvic masses. No abnormal pelvic fluid. Stomach: Normal. Duodenum: Normal. Small Bowel: Normal. Colon: Normal. Appendix: Normal. Lymph Nodes: No lymphadenopathy. Peritoneum: No ascites or free air. Retroperitoneum: Normal. Vessels: Normal. Abdominal Wall: Normal. Bones: Normal. Lung Bases: Normal. Inferior Mediastinum: Normal. IMPRESSION No acute intra-abdominal findings. 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 FOLLOW UP APPOINTMENT(S) : f/u with PCP in one 2-3 days PROCEDURES: None IMAGING (S) : report attached to summary MICROBIOLOGY : report attached to summary ACTIVITY : ad greg HOME MEDICATIONS : Continued Home Medications: Active Scripts Amoxicillin/Potassium Clav (Amox Tr-K Clv 875-125 mg Tab) 875 Mg-125 Mg Tablet, 1 TAB PO BID for 10 Days, #20 TAB 0 Refills Prov:ISMAEL BARKER MD 04/09/25 Hydrocortisone (Hydrocortisone) 20 Mg Tablet, 1 TAB PO BID for 5 Days, #10 TAB 0 Refills Complete this dose before changing to 10mg twice daily Prov:SAROJ HYLTON MD 04/09/25 Hydrocortisone (Hydrocortisone) 10 Mg Tablet, 1 TAB PO BID for 30 Days, #60 TAB 0 Refills Prov:HELEN BOWMAN MD 08/25/24 Atorvastatin Calcium (LIPITOR) 40 Mg Tablet, 40 MG PO HS, #30 TAB 0 Refills Prov:HELEN BOWMAN MD 08/25/24 Aspirin (ASPIRIN 81 MG ECTAB) 81 Mg Ectab, 81 MG PO DAILY, #30 TAB.EC 0 Refills Prov:HELEN BOWMAN MD 08/25/24 Reported Medications Ergocalciferol (Vitamin D2) (Vitamin D2) 1,250 Mcg (61154 Unit) Capsule, 1250 MCG PO DAILY, CAP 08/22/24 Levothyroxine Sodium (Levothyroxine Sodium) 100 Mcg Tablet, 100 MCG PO ACBKFST, TAB 08/22/24 Discontinued Scripts Cephalexin Monohydrate (Keflex) 500 Mg Cap, 1 CAP PO BID for 7 Days, #14 CAP 0 Refills Prov:HELEN BOWMAN MD 08/25/24 New Medications: Amoxicillin/Potassium Clav (Amox Tr-K Clv 875-125 mg Tab) 875 Mg-125 Mg Tablet 1 TAB PO BID for 10 Days, #20 TAB 0 Refills Continued Medications: Aspirin (Aspirin 81 Mg Ectab) 81 Mg Ectab 81 MG PO DAILY, #30 TAB.EC 0 Refills Atorvastatin Calcium (Lipitor) 40 Mg Tablet 40 MG PO HS, #30 TAB 0 Refills Ergocalciferol (Vitamin D2) (Vitamin D2) 1,250 Mcg (17210 Unit) Capsule 1250 MCG PO DAILY, CAP Hydrocortisone (Hydrocortisone) 10 Mg Tablet 1 TAB PO BID for 30 Days, #60 TAB 0 Refills Hydrocortisone (Hydrocortisone) 20 Mg Tablet 1 TAB PO BID for 5 Days, #10 TAB 0 Refills (This prescription has been renewed) Complete this dose before changing to 10mg twice daily Levothyroxine Sodium (Levothyroxine Sodium) 100 Mcg Tablet 100 MCG PO ACBKFST, TAB Discontinued Medications: Cephalexin Monohydrate (Keflex) 500 Mg Cap 1 CAP PO BID for 7 Days, #14 CAP 0 Refills Time spent arranging discharge: 1-30 minutes ATTESTATION BY PHYSICIAN I have seen and examined the patient. I reviewed the documentation, medical decision making, and treatment plan as noted by the resident provider above. I agree with the findings and plan of care. Alejandro Luu MD, HARSHAVARDHA MD Apr 09, 2025 13:57
[2025-04-09] MEDS ORDERED: HYDR20TA24 PO (14:01)
[2025-04-09] MEDS ORDERED: AMOX1TAB16 PO (14:10)
[2025-04-09 14:55] VITALS: BP 115/78; PULSE 83; RESP 20; TEMP 97.8; O2SAT 99
--- NOTE | 2025-04-09 15:00 | NUR ---
PT DISCHARGED AT THIS TIME
== END 2025-04-09 14:00 | disposition home or self-care (01) | DRG 871 ==
LOC: EDH 13:10 → EDHIP 19:11
PROVIDERS: ADMIT Internal Medicine; ATTEND Internal Medicine
DX: A41.9 Sepsis, unspecified organism (principal); R65.21 Severe sepsis with septic shock; E87.1 Hypo-osmolality and hyponatremia; N17.9 Acute kidney failure, unspecified; N39.0 Urinary tract infection, site not specified; E87.20 Acidosis, unspecified; E27.40 Unspecified adrenocortical insufficiency; E03.9 Hypothyroidism, unspecified; D75.838 Other thrombocytosis; E86.0 Dehydration; E83.42 Hypomagnesemia; E87.6 Hypokalemia; N18.9 Chronic kidney disease, unspecified; Z82.49 Family history of ischemic heart disease and other diseases of the circulatory system; Z90.49 Acquired absence of other specified parts of digestive tract
CPT/HCPCS: 36415; 71045; 74176; 80048; 80053; 80076; 81001; 82550; 83605; 83690; 83735; 84145; 85025; 87040; 87086; 87635; 87804; 87880; 96361; 96365; 99285; G0378; J1720; J2405; J2543; J3475; J3480; J7030